=== PATIENT | female | born 1950 | race African-American/Black ===

== ENCOUNTER 2016-08-02 13:06 | Emergency (ER) | payer OTHER ==
[~2016-08-02] VITALS: Ht 157.5 cm; Wt 97.1 kg
[~2016-08-02 13:06] MED LIST: ACET325T9 PO; ASPI81TA50 PO; BACL10TA PO; CHLO1CAP PO; CRESTOR10 MG PO; CYCL10TA2 PO; DICY10CA3 PO; DIPH25CA58 PO; ESOM40CA PO; ESOM40SU PO; ESOM5SUS PO; GABA-586 PO; HYDR10TA2 PO; LIDO700A4 TP; MAGN400T3 PO; METH-38 PO; NAPR500T3 PO; NICO4GUM3 BC; NORT50CA PO; OLME20TA PO; ONDA4TAB7 PO; OXYC-323 PO; OXYC1TAB7 PO; PROC10TA57 PO; PROM25TA10 PO; SUMA50TA3 PO; TEMA15CA PO; TEMA7.5C2 PO; TOPI25TA32 PO; ZOLP10TA4 PO
--- NOTE | 2016-08-02 14:39 | PHYS DOC ---
Past Medical History Past Medical History: Arthritis, Diverticulitis, High Cholesterol, Hypertension , IBS, Other Additional Past Medical Histor: insomnia Past Surgical History: Appendectomy, Cholecystectomy, Hysterectomy, Tonsillectomy Additional Past Surgical Histo: bilat carpel tunnel, rt hip sg, rectal prolapse , hemroridectomy, back sg Alcohol Use: None Drug Use: None Adult General Chief Complaint Chief Complaint: GROIN PAIN HPI HPI Patient is a 66 year old female who presents with left groin pain for the past day and a half. Patient states on her way to [place] yesterday she developed left groin pain that is painful when she walks and has pain relief when she lays down. Patient denies any injury to the left groin. Patient denies any history of hernias. Patient denies any history or risk factors for DVT. Patient denies any dysuria or diarrhea constipation. Patient denies any chest pain or shortness of breath. Patient has no other symptoms. Pertinent exam findings: Positive tender to palpation left groin Abdomen soft nontender bowel sounds were normal 4 quadrants ED course: Patient was seen and evaluated CBC, CMP, lipase, UA, CT the abdomen and pelvis with contrast, ultrasound left lower extremity were ordered 1748: Patient is sitting up in bed or he cannot pop and states her pain has improved, discuss results with the patient and plan to discharge home with follow-up with her PCP and possible biopsy of a lymph node. Pertinent results: Ultrasound left lower extremity shows a lymph node in the left groin CT of abdomen and pelvis unremarkable MDM: After reviewing the chart, CC/HPI/PMH, physical exam, [lab results], [ radiological results], I do not believe the patient has entered abdominal emergency or an acute DVT left lower extremity wart and further workup and admission at this time. I believe the patient's left groin pain can be contributed to either her arthritis or the enlarged left lymph node in the groin area. I did explain to the patient that she needs a follow up with PCP and potentially have that biopsied. I discussed abnormal labs with the patient and recommended repeat lab work by her PCP. Patient is stable for discharge. Patient is comfortable being discharged home. Additional verbal discharge instructions were provided to the patient and that if symptoms get worse or any new symptoms arise that are worrisome to the patient she is to return to the emergency room immediately Review of Systems Review of Systems Constitutional: Denies fever or chills [] Eyes: Denies change in visual acuity, redness, or eye pain [] HENT: Denies nasal congestion or sore throat [] Respiratory: Denies cough or shortness of breath [] Cardiovascular: No additional information not addressed in HPI [] GI: Denies abdominal pain, nausea, vomiting, bloody stools or diarrhea [] : Denies dysuria or hematuria [] Musculoskeletal: Left groin pain Integument: Denies rash or skin lesions [] Current Medications Current Medications Current Medications Medications (Trade) Dose Ordered Sig/Lorraine Start Time Stop Time Status Last Admin Dose Admin Fentanyl Citrate (Fentanyl 2ml Vial) 50 mcg 1X ONCE 08/02/16 15:45 08/02/16 15:46 DC 08/02/16 15:52 50 MCG Info (Do NOT chart on this entry -- for MONITORING) 1 each PRN DAILY PRN 08/02/16 15:00 08/02/16 18:05 DC Iohexol (Omnipaque 300 Mg/ml) 75 ml 1X ONCE 08/02/16 15:00 08/02/16 15:01 DC 08/02/16 15:00 75 ML Allergies Allergies Allergies Coded Allergies Type Severity Reaction Last Updated Verified amoxicillin Allergy Intermediate Rash 01/21/15 Yes mirtazapine Allergy Intermediate WILD DREAMS 01/22/15 Yes trazodone Allergy Intermediate HEADACHE 01/22/15 Yes cefdinir Adverse Reaction Intermediate Nausea and Vomiting 01/22/15 Yes Physical Exam Physical Exam Constitutional: Well developed, well nourished, no acute distress, non-toxic appearance. [] HENT: Normocephalic, atraumatic, bilateral external ears normal, oropharynx moist, no oral exudates, nose normal. [] Eyes: PERRLA, EOMI, conjunctiva normal, no discharge. [] Neck: Normal range of motion, no tenderness, supple, no stridor. [] Cardiovascular:Heart rate regular rhythm, no murmur [] Lungs & Thorax: Bilateral breath sounds clear to auscultation [] Abdomen: Bowel sounds normal, soft, no tenderness, no masses, no pulsatile masses. [] Skin: Warm, dry, no erythema, no rash. [] Back: No tenderness, no CVA tenderness. [] Extremities: Left groin tenderness palpation with no palpable mass or hernia felt. Neurologic: Alert and oriented X 3, normal motor function, normal sensory function, no focal deficits noted. [] Psychologic: Affect normal, judgement normal, mood normal. [] Current Patient Data Vital Signs Vital Signs Date Time Temp Pulse Resp B/P (MAP) Pulse Ox O2 Delivery O2 Flow Rate FiO2 08/02/16 17:09 77 21 144/80 (101) 94 Room Air 08/02/16 14:03 98.8 98.8 Lab Values Laboratory Tests Test 08/02/16 15:15 White Blood Count 8.5 x10^3/uL (4.0-11.0) Red Blood Count 4.84 x10^6/uL (3.50-5.40) Hemoglobin 14.4 g/dL (12.0-15.5) Hematocrit 43.2 % (36.0-47.0) Mean Corpuscular Volume 89 fL (79-100) Mean Corpuscular Hemoglobin 30 pg (25-35) Mean Corpuscular Hemoglobin Concent 33 g/dL (31-37) Red Cell Distribution Width 16.1 % (11.5-14.5) H Platelet Count 221 x10^3/uL (140-400) Neutrophils (%) (Auto) 67 % (31-73) Lymphocytes (%) (Auto) 22 % (24-48) L Monocytes (%) (Auto) 9 % (0-9) Eosinophils (%) (Auto) 2 % (0-3) Basophils (%) (Auto) 1 % (0-3) Neutrophils # (Auto) 5.6 x10^3uL (1.8-7.7) Lymphocytes # (Auto) 1.8 x10^3/uL (1.0-4.8) Monocytes # (Auto) 0.8 x10^3/uL (0.0-1.1) Eosinophils # (Auto) 0.2 x10^3/uL (0.0-0.7) Basophils # (Auto) 0.1 x10^3/uL (0.0-0.2) Sodium Level 145 mmol/L (136-145) Potassium Level 3.9 mmol/L (3.5-5.1) Chloride Level 108 mmol/L (98-107) H Carbon Dioxide Level 30 mmol/L (21-32) Anion Gap 7 (6-14) Blood Urea Nitrogen 12 mg/dL (7-20) Creatinine 0.8 mg/dL (0.6-1.0) Estimated GFR (Cockcroft-Gault) 87.4 BUN/Creatinine Ratio 15 (6-20) Glucose Level 111 mg/dL (70-99) H Calcium Level 8.6 mg/dL (8.5-10.1) Total Bilirubin 1.5 mg/dL (0.2-1.0) H Aspartate Amino Transferase (AST) 39 U/L (15-37) H Alanine Aminotransferase (ALT) 39 U/L (14-59) Alkaline Phosphatase 133 U/L (46-116) H Total Protein 6.9 g/dL (6.4-8.2) Albumin 3.4 g/dL (3.4-5.0) Albumin/Globulin Ratio 1.0 (1.0-1.7) Lipase 124 U/L (73-393) Laboratory Tests 08/02/16 15:15 Laboratory Tests 08/02/16 15:15 EKG EKG [] Radiology/Procedures Radiology/Procedures Ultrasound left lower extremity : Impression: 1. There is no evidence of deep venous thrombosis from the left common femoral to popliteal veins. 2. There is nonspecific left groin lymph node.[] CT: Impression: 1. No convincing acute abnormality is identified. There is mild sigmoid diverticulosis without obvious evidence of diverticulitis. Course & Med Decision Making Course & Med Decision Making Pertinent Labs and Imaging studies reviewed. (See chart for details) [] Dragon Disclaimer Dragon Disclaimer This electronic medical record was generated, in whole or in part, using a voice recognition dictation system. Departure Departure Impression: Primary Impression: Lymphadenopathy Additional Impression: Groin pain Disposition: HOME, SELF-CARE Condition: IMPROVED Referrals: GREGORIA MCGRATH (PCP) Patient Instructions: Hip Pain Problem Qualifiers Additional Impression: Groin pain Laterality: left Qualified Codes: R10.32 - Left lower quadrant pain EKATERINA WELLINGTON DO August 02, 2016 14:39
[2016-08-02] MEDS ORDERED: IOHEXOL 300 MG/ML 75 ML VIAL IV ONE (15:00)
[2016-08-02] MEDS ORDERED: CONTRAST GIVEN MC PRN (15:00)
[2016-08-02 15:21] LABS: BASO # 0.1 x10^3/uL (0.0-0.2); BASO % 1 % (0-3); EOS % 2 % (0-3); HEMATOCRIT 43.2 % (36.0-47.0); HEMOGLOBIN 14.4 g/dL (12.0-15.5); LYMPH # 1.8 x10^3/uL (1.0-4.8); LYMPH % 22 % (24-48); MEAN CORPUSCULAR HEMOGLOBIN 30 pg (25-35); MEAN CORPUSCULAR HGB CONC 33 g/dL (31-37); MEAN CORPUSCULAR VOLUME 89 fL (79-100); MONO % 9 % (0-9); NEUT % 67 % (31-73); PLATELET COUNT 221 x10^3/uL (140-400); RED BLOOD COUNT 4.84 x10^6/uL (3.50-5.40); RED CELL DISTRIBUTION WIDTH 16.1 % (11.5-14.5); WHITE BLOOD COUNT 8.5 x10^3/uL (4.0-11.0)
[2016-08-02 15:32] LABS: CALCIUM 8.6 mg/dL (8.5-10.1); CREATININE 0.8 mg/dL (0.6-1.0); GFR 87.4; POTASSIUM 3.9 mmol/L (3.5-5.1)
[2016-08-02 15:38] LABS: ALBUMIN 3.4 g/dL (3.4-5.0); TOTAL BILIRUBIN 1.5 mg/dL (0.2-1.0); TOTAL PROTEIN 6.9 g/dL (6.4-8.2)
[2016-08-02] MEDS ORDERED: fentaNYL PF VIAL 100 MCG/2 ML VIAL IV ONE (15:45)
--- NOTE | 2016-08-02 16:15 | RAD ---
Left lower extremity venous doppler ultrasound History: Left groin pain Comparison: None Findings: Multiple grayscale, color, and duplex spectral analysis sonographic images were acquired of the left lower extremity veins to evaluate for the presence of DVT. There is normal phasicity. Normal compression, color-flow, and augmentation is demonstrated from the left common femoral to the popliteal veins. There is normal color flow of the proximal profunda femoris vein. There is normal color flow of segments of the calf veins. There is a node in the left groin region on the order of 3.1 x 0.5 x 2 cm. Impression: 1. There is no evidence of deep venous thrombosis from the left common femoral to popliteal veins. 2. There is nonspecific left groin lymph node. Electronically signed by: Andrei Rashid MD (08/02/2016 4:12 PM)
--- NOTE | 2016-08-02 16:47 | RAD ---
CT abdomen and pelvis with contrast History: Left groin pain for 2 days Contrast: 75 cc Omnipaque 300 Technique: After the administration of intravenous contrast, CT imaging was performed of the abdomen and pelvis. No oral contrast was given as per request. Multiplanar images are reviewed. Exposure: One or more of the following individualized dose reduction techniques were utilized for this examination: 1. Automated exposure control 2. Adjustment of the mA and/or kV according to patient size 3. Use of iterative reconstruction technique. Comparison: March 19, 2015 Findings: There is some motion degradation. There is mild atelectasis of the visualized lung bases. There is no significant abnormality of the liver, spleen, pancreas, adrenal glands. Both kidneys enhance without hydronephrosis. Tiny hypodense lesion of the superior right kidney is similar, otherwise too small to accurately characterize on the order of 0.3 cm.There again has been cholecystectomy. Accurate evaluation of bowel is limited without oral contrast. There is no significant inflammatory change adjacent to the bowel. There is no evidence of bowel obstruction, free fluid, or free air. Appendix is not clearly identified. There is mild sigmoid diverticulosis without obvious evidence of diverticulitis. The bladder has a normal configuration. There is no significant lymphadenopathy. There has been posterolateral fusion L4-S1, posterior decompression at these levels. Impression: 1. No convincing acute abnormality is identified. There is mild sigmoid diverticulosis without obvious evidence of diverticulitis. Electronically signed by: Andrei Rashid MD (08/02/2016 4:43 PM)
[2016-08-02 17:09] VITALS: BP 144/80
== END 2016-08-02 18:05 | disposition home or self-care (01) ==
LOC: ER 13:06
DX: R10.32 Left lower quadrant pain (principal); R59.1 Generalized enlarged lymph nodes; M19.90 Unspecified osteoarthritis, unspecified site; E78.00 Pure hypercholesterolemia, unspecified; I10 Essential (primary) hypertension; G47.00 Insomnia, unspecified; Z90.49 Acquired absence of other specified parts of digestive tract; Z90.710 Acquired absence of both cervix and uterus; Z88.0 Allergy status to penicillin; Z88.1 Allergy status to other antibiotic agents; Z88.8 Allergy status to other drugs, medicaments and biological substances
CPT/HCPCS: 36415; 74177; 80053; 83690; 85027; 93971; 96374; 99285; J3010; Q9967

== ENCOUNTER 2017-08-03 13:54 | Emergency (ER) | payer OTHER ==
[2017-08-03 14:22] LABS: POC GLUCOSE 83 mg/dL (70-99)
[2017-08-03 15:06] LABS: ADD MAN DIFF? NO
[2017-08-03 15:07] LABS: BASO # 0.1 x10^3/uL (0.0-0.2); BASO % 1 % (0-3); EOS % 0 % (0-3); HEMATOCRIT 42.8 % (36.0-47.0); HEMOGLOBIN 14.4 g/dL (12.0-15.5); LYMPH # 1.5 x10^3/uL (1.0-4.8); LYMPH % 23 % (24-48); MEAN CORPUSCULAR HEMOGLOBIN 31 pg (25-35); MEAN CORPUSCULAR HGB CONC 34 g/dL (31-37); MEAN CORPUSCULAR VOLUME 91 fL (79-100); MONO # 0.9 x10^3/uL (0.0-1.1); MONO % 15 % (0-9); NEUT # 3.9 x10^3uL (1.8-7.7); NEUT % 61 % (31-73); PLATELET COUNT 230 x10^3/uL (140-400); RED BLOOD COUNT 4.71 x10^6/uL (3.50-5.40); RED CELL DISTRIBUTION WIDTH 13.8 % (11.5-14.5); WHITE BLOOD COUNT 6.3 x10^3/uL (4.0-11.0)
[2017-08-03] MEDS: IV NORMAL SALINE 1000ML BAG 1,000 ML IV ×2 (15:09→16:34)
[2017-08-03] MEDS: diphenhydrAMINE 50 MG/ML VIAL IVP (15:11)
[2017-08-03] MEDS: PROCHLORPERAZINE 10 MG/2 ML VIAL. IV (15:11)
[2017-08-03 15:18] LABS: ANION GAP 3 (6-14); BLOOD UREA NITROGEN 11 mg/dL (7-20); BUN/CREATININE RATIO 10 (6-20); CALCIUM 8.9 mg/dL (8.5-10.1); CARBON DIOXIDE 31 mmol/L (21-32); CHLORIDE 105 mmol/L (98-107); CREATININE 1.1 mg/dL (0.6-1.0); GFR 60.3; GLUCOSE 112 mg/dL (70-99); POTASSIUM 4.2 mmol/L (3.5-5.1); SODIUM 139 mmol/L (136-145)
[2017-08-03 15:24] LABS: ALBUMIN 3.2 g/dL (3.4-5.0); ALBUMIN/GLOBULIN RATIO 0.7 (1.0-1.7); ALK PHOS 180 U/L (46-116); ALT (SGPT) 57 U/L (14-59); AST (SGOT) 65 U/L (15-37); LIPASE 243 U/L (73-393); MAGNESIUM 2.5 mg/dL (1.8-2.4); TOTAL BILIRUBIN 1.6 mg/dL (0.2-1.0); TOTAL PROTEIN 8.1 g/dL (6.4-8.2)
[2017-08-03 15:26] LABS: TROPONINI 0.045 ng/mL (0.000-0.055)
[2017-08-03] MEDS: KETOROLAC 30 MG/ML INJ. IV (16:48)
[2017-08-03 17:26] LABS: TROPONINI 0.043 ng/mL (0.000-0.055)
== END 2017-08-03 18:00 | disposition home or self-care (01) ==
LOC: ER 13:54
DX: R51 Headache (principal); I10 Essential (primary) hypertension; E78.00 Pure hypercholesterolemia, unspecified; K58.9 Irritable bowel syndrome, unspecified; G43.909 Migraine, unspecified, not intractable, without status migrainosus; Z88.1 Allergy status to other antibiotic agents; Z88.8 Allergy status to other drugs, medicaments and biological substances
CPT/HCPCS: 36415; 70450; 80053; 82962; 83690; 83735; 84484; 85025; 93005; 96374; 96375; 99285-25; J0780; J1200; J1885; J7030

== ENCOUNTER 2017-08-13 21:36 | Emergency (ER) | payer OTHER ==
[2017-08-13 23:18] LABS: ADD MAN DIFF? YES; BASO # 0.1 x10^3/uL (0.0-0.2); BASO % 1 % (0-3); EOS # 0.3 x10^3/uL (0.0-0.7); EOS % 3 % (0-3); HEMATOCRIT 34.3 % (36.0-47.0); HEMOGLOBIN 11.5 g/dL (12.0-15.5); LYMPH # 2.3 x10^3/uL (1.0-4.8); LYMPH % 21 % (24-48); MEAN CORPUSCULAR HEMOGLOBIN 31 pg (25-35); MEAN CORPUSCULAR HGB CONC 34 g/dL (31-37); MEAN CORPUSCULAR VOLUME 91 fL (79-100); MONO # 0.9 x10^3/uL (0.0-1.1); MONO % 9 % (0-9); NEUT % 66 % (31-73); PLATELET COUNT 442 x10^3/uL (140-400); RED BLOOD COUNT 3.77 x10^6/uL (3.50-5.40); RED CELL DISTRIBUTION WIDTH 14.8 % (11.5-14.5); WHITE BLOOD COUNT 10.6 x10^3/uL (4.0-11.0)
[2017-08-13 23:26] LABS: ANION GAP 9 (6-14); BLOOD UREA NITROGEN 14 mg/dL (7-20); CALCIUM 8.7 mg/dL (8.5-10.1); CARBON DIOXIDE 29 mmol/L (21-32); CHLORIDE 106 mmol/L (98-107); GFR 67.3; GLUCOSE 96 mg/dL (70-99); POTASSIUM 3.9 mmol/L (3.5-5.1); SODIUM 144 mmol/L (136-145)
[2017-08-14 00:47] LABS: % BANDS 2 % (0-9); % EOS 7 % (0-5); % LYMPHS 17 % (24-48); % MONOS 4 % (0-10); % MYELOS 2 % (0-0); % SEGS 68 % (35-66); NUCLEATED RBC 3; PLT ESTIMATE INCREASED (ADEQUATE)
[2017-08-14 00:48] LABS: ANISOCYTOSIS SLIGHT; POLYCHROMASIA SLIGHT
== END 2017-08-14 00:16 | disposition home or self-care (01) ==
LOC: ER 08-14 00:16
DX: J06.9 Acute upper respiratory infection, unspecified (principal); B34.9 Viral infection, unspecified; M19.90 Unspecified osteoarthritis, unspecified site; E78.00 Pure hypercholesterolemia, unspecified; I10 Essential (primary) hypertension; G43.909 Migraine, unspecified, not intractable, without status migrainosus; F17.210 Nicotine dependence, cigarettes, uncomplicated; K58.9 Irritable bowel syndrome, unspecified; Z88.1 Allergy status to other antibiotic agents; Z88.8 Allergy status to other drugs, medicaments and biological substances
CPT/HCPCS: 36415; 71046; 80048; 85007; 85025; 99285

== ENCOUNTER 2017-08-21 11:51 | Emergency (ER) | payer OTHER ==
[2017-08-21 12:18] LABS: BILIRUBIN,URINE SMALL (NEG); CLARITY,URINE TURBID; COLOR,URINE ORANGE; GLUCOSE,URINE NEGATIVE (NEG); NITRITE,URINE POSITIVE (NEG); PROTEIN,URINE 30 mg/dL (NEG-TRACE)
[2017-08-21 12:28] LABS: BACTERIA,URINE FEW /HPF (0-FEW); SQUAMOUS EPITHELIAL CELL,UR FEW /LPF; WBC,URINE >40 /HPF (0-4)
== END 2017-08-21 12:55 | disposition home or self-care (01) ==
LOC: ER 12:55
DX: N39.0 Urinary tract infection, site not specified (principal); E78.00 Pure hypercholesterolemia, unspecified; I10 Essential (primary) hypertension; G43.909 Migraine, unspecified, not intractable, without status migrainosus; K58.9 Irritable bowel syndrome, unspecified; Z90.49 Acquired absence of other specified parts of digestive tract; Z90.710 Acquired absence of both cervix and uterus; Z88.1 Allergy status to other antibiotic agents; Z88.8 Allergy status to other drugs, medicaments and biological substances
CPT/HCPCS: 81001; 99283

== ENCOUNTER 2017-11-04 06:41 | Inpatient (IN) | payer OTHER ==
[~2017-11-04] VITALS: Ht 157.5 cm; Wt 81.6 kg
[~2017-11-04 06:41] MED LIST changes: +AZIT1PAC9 PO; +NAPR-514 PO; -NAPR500T3 PO; -NICO4GUM3 BC; +NICO4GUM42 BC; +NITR100C62 PO; -OLME20TA PO; +OLME20TA17 PO; +PHEN-318 PO; -TOPI25TA32 PO; +TOPI25TA52 PO
--- NOTE | 2017-11-04 06:59 | PHYS DOC ---
Past Medical History Past Medical History: Arthritis, Diverticulitis, High Cholesterol, Hypertension , IBS, Migraines, Other Additional Past Medical Histor: insomnia Past Surgical History: Appendectomy, Cholecystectomy, Hysterectomy, Tonsillectomy Additional Past Surgical Histo: bilat carpel tunnel, rt hip sg, rectal prolapse , hemroridectomy, back sg Alcohol Use: None Drug Use: None Adult General Chief Complaint Chief Complaint: CHEST PAIN HPI HPI Patient is a 67 year old female was presenting to the emergency room with chest pain. Since Tuesday described as both dull and constant and also sharp. It is not really exertional she doesn't think. No fever no cough no abdominal pain no vomiting just this pain. She also complaining of a headache Review of Systems Review of Systems Constitutional: Denies fever or chills [] Eyes: Denies change in visual acuity, redness, or eye pain [] HENT: Denies nasal congestion or sore throat [] GI: Denies abdominal pain, nausea, vomiting, bloody stools or diarrhea [] : Denies dysuria or hematuria [] Musculoskeletal: Denies back pain or joint pain [] Integument: Denies rash or skin lesions [] Neurologic: Denies, focal weakness or sensory changes [] Endocrine: Denies polyuria or polydipsia [] All other systems were reviewed and found to be within normal limits, except as documented in this note. Current Medications Current Medications Current Medications Medications (Trade) Dose Ordered Sig/[facility] Start Time Stop Time Status Last Admin Dose Admin Acetaminophen (Tylenol) 1,000 mg 1X ONCE 11/04/17 08:00 11/04/17 08:01 DC 11/04/17 07:50 1,000 MG Aspirin (Children'S Aspirin) 324 mg 1X ONCE 11/04/17 08:00 11/04/17 08:01 DC 11/04/17 07:51 324 MG Allergies Allergies Allergies Coded Allergies Type Severity Reaction Last Updated Verified amoxicillin Allergy Intermediate Rash 01/21/15 Yes mirtazapine Allergy Intermediate WILD DREAMS 01/22/15 Yes trazodone Allergy Intermediate HEADACHE 01/22/15 Yes cefdinir Adverse Reaction Intermediate Nausea and Vomiting 01/22/15 Yes Physical Exam Physical Exam Constitutional: Well developed, well nourished, no acute distress, non-toxic appearance. [] HENT: Normocephalic, atraumatic, bilateral external ears normal, oropharynx moist, no oral exudates, nose normal. [] Eyes: PERRLA, EOMI, conjunctiva normal, no discharge. [] Neck: Normal range of motion, no tenderness, supple, no stridor. [] Cardiovascular:Heart rate regular rhythm, no murmur [] Lungs & Thorax: Bilateral breath sounds clear to auscultation []reproducible chest wall tenderness Abdomen: Bowel sounds normal, soft, no tenderness, no masses, no pulsatile masses. [] Skin: Warm, dry, no erythema, no rash. [] Back: No tenderness, no CVA tenderness. [] Extremities: No tenderness, no cyanosis, no clubbing, ROM intact, no edema. [] Neurologic: Alert and oriented X 3, normal motor function, normal sensory function, no focal deficits noted. [] Psychologic: Affect normal, judgement normal, mood normal. [] Current Patient Data Vital Signs Vital Signs Date Time Temp Pulse Resp B/P (MAP) Pulse Ox O2 Delivery O2 Flow Rate FiO2 11/04/17 08:23 64 16 142/80 (100) 95 Room Air 11/04/17 07:17 99.1 99.1 Lab Values Laboratory Tests Test 11/04/17 06:55 White Blood Count 8.2 x10^3/uL (4.0-11.0) Red Blood Count 4.99 x10^6/uL (3.50-5.40) Hemoglobin 14.7 g/dL (12.0-15.5) Hematocrit 43.8 % (36.0-47.0) Mean Corpuscular Volume 88 fL (79-100) Mean Corpuscular Hemoglobin 29 pg (25-35) Mean Corpuscular Hemoglobin Concent 34 g/dL (31-37) Red Cell Distribution Width 17.2 % (11.5-14.5) H Platelet Count 247 x10^3/uL (140-400) Neutrophils (%) (Auto) 58 % (31-73) Lymphocytes (%) (Auto) 32 % (24-48) Monocytes (%) (Auto) 7 % (0-9) Eosinophils (%) (Auto) 3 % (0-3) Basophils (%) (Auto) 1 % (0-3) Neutrophils # (Auto) 4.8 x10^3uL (1.8-7.7) Lymphocytes # (Auto) 2.6 x10^3/uL (1.0-4.8) Monocytes # (Auto) 0.6 x10^3/uL (0.0-1.1) Eosinophils # (Auto) 0.2 x10^3/uL (0.0-0.7) Basophils # (Auto) 0.1 x10^3/uL (0.0-0.2) Prothrombin Time 13.9 SEC (11.7-14.0) Prothrombin Time INR 1.1 (0.8-1.1) D-Dimer (Alisha) < 0.27 ug/mlFEU Sodium Level 144 mmol/L (136-145) Potassium Level 3.6 mmol/L (3.5-5.1) Chloride Level 106 mmol/L (98-107) Carbon Dioxide Level 28 mmol/L (21-32) Anion Gap 10 (6-14) Blood Urea Nitrogen 11 mg/dL (7-20) Creatinine 1.0 mg/dL (0.6-1.0) Estimated GFR (Cockcroft-Gault) 67.3 BUN/Creatinine Ratio 11 (6-20) Glucose Level 112 mg/dL (70-99) H Calcium Level 9.3 mg/dL (8.5-10.1) Total Bilirubin 1.1 mg/dL (0.2-1.0) H Aspartate Amino Transferase (AST) 22 U/L (15-37) Alanine Aminotransferase (ALT) 29 U/L (14-59) Alkaline Phosphatase 127 U/L (46-116) H Troponin I Quantitative 0.055 ng/mL (0.000-0.055) Total Protein 7.3 g/dL (6.4-8.2) Albumin 3.6 g/dL (3.4-5.0) Albumin/Globulin Ratio 1.0 (1.0-1.7) Laboratory Tests 11/04/17 06:55 Laboratory Tests 11/04/17 06:55 EKG EKG Normal sinus rhythm rate of 59 no obvious acute ischemic changes noted interpreted by me the timing encounter. There were some nonspecific changes inferiorly and lateral as well as anterior some flattening Radiology/Procedures Radiology/Procedures [] Impressions: Comparison is made to a study from 08/13/2017. The heart is at the upper limits of normal in size. There is calcific plaquing of the thoracic aorta. The pulmonary vascularity is normal. No pulmonary infiltrate is seen. There is no evidence of pleural fluid. IMPRESSION: No acute cardiopulmonary abnormality is detected. Electronically signed by: Edu Rabago MD (11/04/2017 7:50 AM) [facility] Course & Med Decision Making Course & Med Decision Making Pertinent Labs and Imaging studies reviewed. (See chart for details) []67-year-old female multiple risk factors for coronary artery disease presenting with atypical chest pain and has been fairly constant however the troponin is just barely within the normal range 0.055. EKG showed some nonspecific changes. Patient is overall well-appearing however the heart score is a 4 for age and risk factors patient will be admitted to the hospitalist service for stratification and a formal rule out. I don't think this is a dissection or PE the d-dimer was negative I does not sound like either Dragon Disclaimer Dragon Disclaimer This electronic medical record was generated, in whole or in part, using a voice recognition dictation system. Departure Departure Impression: Primary Impression: Chest pain Disposition: ADMITTED INPATIENT Admitting Physician: Sherita Holley Condition: STABLE Referrals: GREGORIA MCGRATH (PCP) ROBERT HARPER MD Nov 04, 2017 06:59
[2017-11-04 07:41] LABS: BASO # 0.1 x10^3/uL (0.0-0.2); BASO % 1 % (0-3); EOS # 0.2 x10^3/uL (0.0-0.7); EOS % 3 % (0-3); HEMATOCRIT 43.8 % (36.0-47.0); HEMOGLOBIN 14.7 g/dL (12.0-15.5); LYMPH # 2.6 x10^3/uL (1.0-4.8); LYMPH % 32 % (24-48); MEAN CORPUSCULAR HEMOGLOBIN 29 pg (25-35); MEAN CORPUSCULAR HGB CONC 34 g/dL (31-37); MEAN CORPUSCULAR VOLUME 88 fL (79-100); MONO # 0.6 x10^3/uL (0.0-1.1); MONO % 7 % (0-9); NEUT # 4.8 x10^3uL (1.8-7.7); NEUT % 58 % (31-73); PLATELET COUNT 247 x10^3/uL (140-400); RED BLOOD COUNT 4.99 x10^6/uL (3.50-5.40); RED CELL DISTRIBUTION WIDTH 17.2 % (11.5-14.5); WHITE BLOOD COUNT 8.2 x10^3/uL (4.0-11.0)
--- NOTE | 2017-11-04 07:53 | RAD ---
Portable chest, 11/04/2017: HISTORY: Chest pain Comparison is made to a study from 08/13/2017. The heart is at the upper limits of normal in size. There is calcific plaquing of the thoracic aorta. The pulmonary vascularity is normal. No pulmonary infiltrate is seen. There is no evidence of pleural fluid. IMPRESSION: No acute cardiopulmonary abnormality is detected. Electronically signed by: Edu Rabago MD (11/04/2017 7:50 AM) [facility]
[2017-11-04 07:56] LABS: PROTHROMBIN TIME PATIENT 13.9 SEC (11.7-14.0)
[2017-11-04 07:59] LABS: CALCIUM 9.3 mg/dL (8.5-10.1); GFR 67.3; POTASSIUM 3.6 mmol/L (3.5-5.1)
[2017-11-04 08:00] LABS: D-DIMER < 0.27 ug/mlFEU (0.00-0.50)
[2017-11-04] MEDS ORDERED: ASPIRIN CHEWABLE 81 MG TABLET. PO ONE (08:00)
[2017-11-04] MEDS ORDERED: ACETAMINOPHEN 500 MG TABLET PO ONE (08:00)
[2017-11-04 08:05] LABS: ALBUMIN 3.6 g/dL (3.4-5.0); TOTAL BILIRUBIN 1.1 mg/dL (0.2-1.0); TOTAL PROTEIN 7.3 g/dL (6.4-8.2)
--- NOTE | 2017-11-04 08:12 | EKG ---
[facility] [address] [place] [address] Test Date: 2017-11-04 Test Time: 06:49:11 Pat Name: KRISTINA BAZZI Department: Room: Gender: F [employer]: : 1950 Requested By: ROBERT HARPER Order Number: [id number] Reading MD: Odilon Flores MD Measurements Intervals [place] Rate: 59 P: 48 MN: 222 QRS: -20 QRSD: 78 T: 27 QT: 364 QTc: 360 Interpretive Statements SINUS RHYTHM PROLONGED MN INTERVAL NON-SPECIFIC ST/T CHANGES Electronically Signed On 11-08-2017 11:52:31 CDT by Odilon Flores MD
[2017-11-04] MEDS ORDERED: VENL37.5 PO (10:59)
[2017-11-04] MEDS ORDERED: SUVO20TA PO (10:59)
[2017-11-04 11:00] VITALS: BP 132/79
--- NOTE | 2017-11-04 11:27 | PDOC2 ---
CARDIAC CONSULT DATE OF CONSULT Date of Consult DATE: 11/04/17 TIME: 11:05 REASON FOR CONSULT Reason for Consult: Chest pain REFERRING PHYSICIAN Referring Physician: Kishan SOURCE Source: Chart review, Patient HISTORY OF PRESENT ILLNESS HISTORY OF PRESENT ILLNESS This is a pleasant 67 yo female admitted for complains of chest pain. Reports that she started having dull achy left chest pain Wed during the day. This continued on intermittently and today she wok up and was having nonradiating sharp left chest pain and unrelieved by aleve and heating pad. There was no associated CLAROS, exertional CP, nausea, vomiting, palpitations, frequent dizziness or diaphoresis or resting SOA. Reports that she has been stressed out lately given that her son just moved in and also presently taking care of a baby as well from her nephew. She has been busy taking care of others and this is stressing her out and forced to take care of the baby as she does not want this baby to end up to strangers. she has intermittent HAs, insomnia, anxiety with noted use of effexor and belsomra. Denies any CAD, recent falls, injury, VTE, arrhythmias, recent MVA, heavy lifting. To add she has been having chronic diarrhea , described as wet to loose for several months typically triggered with meals prompting self discontinuation of benicar and crestor 3 months ago. Denies any heartburn and has not taken any PPIs. Continues to use tobacco with occasional ETOH otherwise no recreational drug use. PAST MEDICAL HISTORY Cardiovascular: HTN, Hyperlipidemia Pulmonary: No pertinent hx CENTRAL NERVOUS SYSTEM: Migraine, Other (GRANDE) GI: Constipation, Diverticulosis, GERD, Other (diarrhea) Heme/Onc: No pertinent hx Hepatobiliary: No pertinent hx Psych: Anxiety Musculoskeletal: Osteoarthritis Rheumatologic: No pertinent hx Infectious disease: No pertinent hx ENT: No pertinent hx Renal/: UTI (trested with antibiotics 2 months ago) Endocrine: No pertinent hx Dermatology: Other (right lipoma) PAST SURGICAL HISTORY Past Surgical History: Appendectomy, Cholecystectomy, Tonsillectomy, Hysterectomy, Other (lumbar fusion, right hip lipoma removal; hemorroidectomy; carpal tunnel syndrome) FAMILY HISTORY Family History: Coronary Artery Disease (father) SOCIAL HISTORY Smoke: 1 pack per day ALCOHOL: occassional Drugs: None Lives: with Family CURRENT MEDICATIONS CURRENT MEDICATIONS Current Medications Medications (Trade) Dose Ordered Sig/Lorraine Route PRN Reason Start Time Stop Time Status Last Admin Dose Admin Aspirin (Children'S Aspirin) 324 mg 1X ONCE PO 11/04/17 08:00 11/04/17 08:01 DC 11/04/17 07:51 Acetaminophen (Tylenol) 1,000 mg 1X ONCE PO 11/04/17 08:00 11/04/17 08:01 DC 11/04/17 07:50 ALLERGIES ALLERGIES: Coded Allergies: amoxicillin (Verified Allergy, Intermediate, Rash, 01/21/15) mirtazapine (Verified Allergy, Intermediate, WILD DREAMS, 01/22/15) "WILD DREAMS" trazodone (Verified Allergy, Intermediate, HEADACHE, 01/22/15) HEADACHE cefdinir (Verified Adverse Reaction, Intermediate, Nausea and Vomiting, ) ROS Review of System 14 point ROS evaluated with pertinent positives noted per HPI PHYSICAL EXAM General: Alert, Oriented X3, Cooperative, No acute distress HEENT: Atraumatic, Mucous membr. moist/pink Lungs: Clear to auscultation, Normal air movement Heart: Regular rate (SR), Normal S1, Normal S2, No murmurs Abdomen: Soft, No tenderness Extremities: No cyanosis, No edema Skin: No breakdown, No significant lesion Neuro: Normal speech, Sensation intact Psych/Mental Status: Mental status NL, Mood NL MUSCULOSKELETAL: Osteoarthritic changes both hands VITALS VITALS Vital Signs Date Time Temp Pulse Resp B/P (MAP) Pulse Ox O2 Delivery O2 Flow Rate FiO2 11/04/17 08:23 64 16 142/80 (100) 95 Room Air 11/04/17 07:17 99.1 99.1 LABS Lab: Laboratory Tests Test 11/04/17 06:55 White Blood Count 8.2 x10^3/uL (4.0-11.0) Red Blood Count 4.99 x10^6/uL (3.50-5.40) Hemoglobin 14.7 g/dL (12.0-15.5) Hematocrit 43.8 % (36.0-47.0) Mean Corpuscular Volume 88 fL (79-100) Mean Corpuscular Hemoglobin 29 pg (25-35) Mean Corpuscular Hemoglobin Concent 34 g/dL (31-37) Red Cell Distribution Width 17.2 % (11.5-14.5) Platelet Count 247 x10^3/uL (140-400) Neutrophils (%) (Auto) 58 % (31-73) Lymphocytes (%) (Auto) 32 % (24-48) Monocytes (%) (Auto) 7 % (0-9) Eosinophils (%) (Auto) 3 % (0-3) Basophils (%) (Auto) 1 % (0-3) Neutrophils # (Auto) 4.8 x10^3uL (1.8-7.7) Lymphocytes # (Auto) 2.6 x10^3/uL (1.0-4.8) Monocytes # (Auto) 0.6 x10^3/uL (0.0-1.1) Eosinophils # (Auto) 0.2 x10^3/uL (0.0-0.7) Basophils # (Auto) 0.1 x10^3/uL (0.0-0.2) Prothrombin Time 13.9 SEC (11.7-14.0) Prothromb Time International Ratio 1.1 (0.8-1.1) D-Dimer (Alisha) < 0.27 ug/mlFEU Sodium Level 144 mmol/L (136-145) Potassium Level 3.6 mmol/L (3.5-5.1) Chloride Level 106 mmol/L (98-107) Carbon Dioxide Level 28 mmol/L (21-32) Anion Gap 10 (6-14) Blood Urea Nitrogen 11 mg/dL (7-20) Creatinine 1.0 mg/dL (0.6-1.0) Estimated GFR (Cockcroft-Gault) 67.3 BUN/Creatinine Ratio 11 (6-20) Glucose Level 112 mg/dL (70-99) Calcium Level 9.3 mg/dL (8.5-10.1) Total Bilirubin 1.1 mg/dL (0.2-1.0) Aspartate Amino Transf (AST/SGOT) 22 U/L (15-37) Alanine Aminotransferase (ALT/SGPT) 29 U/L (14-59) Alkaline Phosphatase 127 U/L (46-116) Troponin I Quantitative 0.055 ng/mL (0.000-0.055) Total Protein 7.3 g/dL (6.4-8.2) Albumin 3.6 g/dL (3.4-5.0) Albumin/Globulin Ratio 1.0 (1.0-1.7) ASSESSMENT/PLAN ASSESSMENT/PLAN 1. Atypical CP; unrelieved by aleve and heating pad. Possibly MSK. EKG SR with first degree AV block. 2. HTN 3. HLP 4. Anxiety/stress/GRANDE; dealing with family dynamics. Per PCP 5. Chronic diarrhea: prompting self stoppage of home benicar and crestor with last doses 3 months ago. 6. Tobaccoism: >30 pk yr 7. Family hx of CAD; SCD father in his 50s Recommendations 1. Significant cardiac risk factors. Will proceed with MPI today. 2. Monitor BP trend and note lipid panel and will restart prior home meds per trend 3. Smoking cessation 4. Takes effexor and belsomra, defer to PCP 5. TSH, lipids. GREGORIO LANCASTER [employer] Nov 04, 2017 11:27
[2017-11-04 11:29] LABS: CHOLESTEROL/HDL RATIO 4.8
[2017-11-04 12:38] LABS: FREE T4 0.87 ng/dL (0.76-1.46)
[2017-11-04] MEDS ORDERED: REGADENOSON 0.4 MG/5 ML DISP.SYRIN. IV ONE ×2 (12:45→14:00)
--- NOTE | 2017-11-04 14:01 | PDOC1 ---
History and Physical Date of Admission Date of Admission DATE: 11/04/17 TIME: 13:59 History of Present Illness History of Present Illness Ms. Lew is a 67 year old female admit with chest pain, 2 days of dull ache left upper chest pain, acutely worse today, with pressure and pain to left chest. Pain is reproducible, also pain is described as both dull and constant and also sharp. she does not correlate meals, or position or exertion Past Medical History Cardiovascular: HTN, Hyperlipidemia Pulmonary: No pertinent hx CENTRAL NERVOUS SYSTEM: Migraine, Other (GRANDE) GI: Constipation, Diverticulosis, GERD, Other (diarrhea) Heme/Onc: No pertinent hx Hepatobiliary: No pertinent hx Psych: Anxiety Musculoskeletal: Osteoarthritis Rheumatologic: No pertinent hx Infectious disease: No pertinent hx ENT: No pertinent hx Renal/: UTI (trested with antibiotics 2 months ago) Endocrine: No pertinent hx Dermatology: Other (right lipoma) Past Surgical History Past Surgical History: Appendectomy, Cholecystectomy, Tonsillectomy, Hysterectomy, Other (lumbar fusion, right hip lipoma removal; hemorroidectomy; carpal tunnel syndrome) Family History Family History: Coronary Artery Disease (father) Social History Smoke: 1 pack per day ALCOHOL: occassional Drugs: None Current Medications Current Medications Current Medications Aspirin (Children'S Aspirin) 324 mg 1X ONCE PO Last administered on 11/04/17at 07:51; Start 11/04/17 at 08:00; Stop 11/04/17 at 08:01; Status DC Acetaminophen (Tylenol) 1,000 mg 1X ONCE PO Last administered on 11/04/17at 07: 50; Start 11/04/17 at 08:00; Stop 11/04/17 at 08:01; Status DC Atorvastatin Calcium (Lipitor) 20 mg QHS PO ; Start 11/04/17 at 21:00 Regadenoson (Lexiscan) 0.4 mg 1X ONCE IV ; Start 11/04/17 at 12:45; Stop at 12:46; Status DC Active Scripts Active Reported Belsomra (Suvorexant) 20 Mg Tablet 20 Mg PO HS Effexor Xr (Venlafaxine Hcl) 37.5 Mg Cap.er.24h 37.5 Mg PO BID Nortriptyline Hcl 50 Mg Capsule 50 Mg PO HS PRN Not taken while in hosp. may resume at home as directed as needed. Benicar (Olmesartan Medoxomil) 20 Mg Tablet 20 Mg PO DAILY Not taken while in hosp. May resume at home as directed Nexium Capsule (Esomeprazole Magnesium) 40 Mg Capsule.dr 40 Mg PO DAILYAC LAST DOSE GIVEN: DATE:01-22-15 TIME:8:30 a.m. NEXT DOSE DUE: DATE:01-23-15 TIME:8:30 a.m. Crestor (Rosuvastatin Calcium) 10 Mg Tablet 20 Mg PO DAILY LAST DOSE GIVEN: DATE:01-21-15 TIME:9:00 p.m. NEXT DOSE DUE: DATE:01-22-15 TIME:9:00 p.m. Allergies Allergies: Coded Allergies: amoxicillin (Verified Allergy, Intermediate, Rash, 01/21/15) mirtazapine (Verified Allergy, Intermediate, WILD DREAMS, 01/22/15) "WILD DREAMS" trazodone (Verified Allergy, Intermediate, HEADACHE, 01/22/15) HEADACHE cefdinir (Verified Adverse Reaction, Intermediate, Nausea and Vomiting, ) ROS General: No: Chills, Night Sweats, Fatigue, Malaise, Appetite, Other PSYCHOLOGICAL ROS: No: Anxiety, Behavioral Disorder, Concentration difficultie , Decreased libido, Depression, Disorientation, Hallucinations, Hostility, Irritablity, Memory difficulties, Mood Swings, Obsessive thoughts, Physical abuse, Sexual abuse, Sleep disturbances, Suicidal ideation, Other Eyes: No Blurry vision, No Decreased vision, No Double vision, No Dry eyes, No Excessive tearing, No Eye Pain, No Itchy Eyes, No Loss of vision, No Photophobia , No Scotomata, No Uses contacts, No Uses glasses, No Other HEENT: No: Heacaches, Visual Changes, Hearing change, Nasal congestion, Nasal discharge, Oral lesions, Sinus pain, Sore Throat, Epistaxis, Sneezing, Snoring, Tinnitus, Vertigo, Vocal changes, Other Respiratory: YES: Cough, Pleuritic Pain Cardiovascular: yes Chest Pain Gastrointestinal: Yes Abdominal Pain, Yes Diarrhea; No Nausea, No Vomiting, No Constipation, No Melena, No Hematochezia, No Other Genitourinary: No Dysuria, No Frequency, No Incontinence, No Hematuria, No Retention, No Discharge, No Urgency, No Pain, No Flank Pain, No Other, No , No , No , No , No , No , No Musculoskeletal: Yes Joint Pain, Yes Joint Stiffness Neurological: No Behavorial Changes, No Bowel/Bladder ControlChng, No Confusion , No Dizziness, No Gait Disturbance, No Headaches, No Impaired Coord/balance, No Memory Loss, No Numbness/Tingling, No Seizures, No Speech Problems, No Tremors, No Visual Changes, No Weakness, No Other Skin: No Dry Skin, No Eczema, No Hair Changes, No Lumps, No Mole Changes, No Mottling, No Nail Changes, No Pruritus, No Rash, No Skin Lesion Changes, No Other, No Acne Physical Exam General: Alert, Oriented X3, Cooperative, No acute distress HEENT: Atraumatic, PERRLA, EOMI Lungs: Normal air movement Heart: S1S2, RRR, no murmurs Extremities: No cyanosis, Other Skin: No breakdown, Other Neuro: Normal speech, Normal tone Psych/Mental Status: Mental status NL, Mood NL Vitals Vitals Vital Signs Date Time Temp Pulse Resp B/P (MAP) Pulse Ox O2 Delivery O2 Flow Rate FiO2 11/04/17 08:23 64 16 142/80 (100) 95 Room Air 11/04/17 07:17 99.1 99.1 Labs Labs Laboratory Tests Test 11/04/17 06:55 11/04/17 12:11 White Blood Count 8.2 x10^3/uL (4.0-11.0) Red Blood Count 4.99 x10^6/uL (3.50-5.40) Hemoglobin 14.7 g/dL (12.0-15.5) Hematocrit 43.8 % (36.0-47.0) Mean Corpuscular Volume 88 fL (79-100) Mean Corpuscular Hemoglobin 29 pg (25-35) Mean Corpuscular Hemoglobin Concent 34 g/dL (31-37) Red Cell Distribution Width 17.2 % (11.5-14.5) Platelet Count 247 x10^3/uL (140-400) Neutrophils (%) (Auto) 58 % (31-73) Lymphocytes (%) (Auto) 32 % (24-48) Monocytes (%) (Auto) 7 % (0-9) Eosinophils (%) (Auto) 3 % (0-3) Basophils (%) (Auto) 1 % (0-3) Neutrophils # (Auto) 4.8 x10^3uL (1.8-7.7) Lymphocytes # (Auto) 2.6 x10^3/uL (1.0-4.8) Monocytes # (Auto) 0.6 x10^3/uL (0.0-1.1) Eosinophils # (Auto) 0.2 x10^3/uL (0.0-0.7) Basophils # (Auto) 0.1 x10^3/uL (0.0-0.2) Prothrombin Time 13.9 SEC (11.7-14.0) Prothromb Time International Ratio 1.1 (0.8-1.1) D-Dimer (Alisha) < 0.27 ug/mlFEU Sodium Level 144 mmol/L (136-145) Potassium Level 3.6 mmol/L (3.5-5.1) Chloride Level 106 mmol/L (98-107) Carbon Dioxide Level 28 mmol/L (21-32) Anion Gap 10 (6-14) Blood Urea Nitrogen 11 mg/dL (7-20) Creatinine 1.0 mg/dL (0.6-1.0) Estimated GFR (Cockcroft-Gault) 67.3 BUN/Creatinine Ratio 11 (6-20) Glucose Level 112 mg/dL (70-99) Calcium Level 9.3 mg/dL (8.5-10.1) Total Bilirubin 1.1 mg/dL (0.2-1.0) Aspartate Amino Transf (AST/SGOT) 22 U/L (15-37) Alanine Aminotransferase (ALT/SGPT) 29 U/L (14-59) Alkaline Phosphatase 127 U/L (46-116) Troponin I Quantitative 0.055 ng/mL (0.000-0.055) 0.054 ng/mL (0.000-0.055) Total Protein 7.3 g/dL (6.4-8.2) Albumin 3.6 g/dL (3.4-5.0) Albumin/Globulin Ratio 1.0 (1.0-1.7) Triglycerides Level 171 mg/dL (0-150) Cholesterol Level 214 mg/dL (0-200) LDL Cholesterol, Calculated 135 mg/dL (0-100) VLDL Cholesterol, Calculated 34 mg/dL (0-40) Non-HDL Cholesterol Calculated 169 mg/dL (0-129) HDL Cholesterol 45 mg/dL (40-60) Cholesterol/HDL Ratio 4.8 Thyroid Stimulating Hormone (TSH) 7.836 uIU/mL (0.358-3.74) Free Thyroxine 0.87 ng/dL (0.76-1.46) Free Triiodothyronine (T3) pg/mL 2.27 pg/mL (2.18-3.98) Laboratory Tests Test 11/04/17 06:55 11/04/17 12:11 White Blood Count 8.2 x10^3/uL (4.0-11.0) Red Blood Count 4.99 x10^6/uL (3.50-5.40) Hemoglobin 14.7 g/dL (12.0-15.5) Hematocrit 43.8 % (36.0-47.0) Mean Corpuscular Volume 88 fL (79-100) Mean Corpuscular Hemoglobin 29 pg (25-35) Mean Corpuscular Hemoglobin Concent 34 g/dL (31-37) Red Cell Distribution Width 17.2 % (11.5-14.5) Platelet Count 247 x10^3/uL (140-400) Neutrophils (%) (Auto) 58 % (31-73) Lymphocytes (%) (Auto) 32 % (24-48) Monocytes (%) (Auto) 7 % (0-9) Eosinophils (%) (Auto) 3 % (0-3) Basophils (%) (Auto) 1 % (0-3) Neutrophils # (Auto) 4.8 x10^3uL (1.8-7.7) Lymphocytes # (Auto) 2.6 x10^3/uL (1.0-4.8) Monocytes # (Auto) 0.6 x10^3/uL (0.0-1.1) Eosinophils # (Auto) 0.2 x10^3/uL (0.0-0.7) Basophils # (Auto) 0.1 x10^3/uL (0.0-0.2) Prothrombin Time 13.9 SEC (11.7-14.0) Prothromb Time International Ratio 1.1 (0.8-1.1) D-Dimer (Alisha) < 0.27 ug/mlFEU Sodium Level 144 mmol/L (136-145) Potassium Level 3.6 mmol/L (3.5-5.1) Chloride Level 106 mmol/L (98-107) Carbon Dioxide Level 28 mmol/L (21-32) Anion Gap 10 (6-14) Blood Urea Nitrogen 11 mg/dL (7-20) Creatinine 1.0 mg/dL (0.6-1.0) Estimated GFR (Cockcroft-Gault) 67.3 BUN/Creatinine Ratio 11 (6-20) Glucose Level 112 mg/dL (70-99) Calcium Level 9.3 mg/dL (8.5-10.1) Total Bilirubin 1.1 mg/dL (0.2-1.0) Aspartate Amino Transf (AST/SGOT) 22 U/L (15-37) Alanine Aminotransferase (ALT/SGPT) 29 U/L (14-59) Alkaline Phosphatase 127 U/L (46-116) Troponin I Quantitative 0.055 ng/mL (0.000-0.055) 0.054 ng/mL (0.000-0.055) Total Protein 7.3 g/dL (6.4-8.2) Albumin 3.6 g/dL (3.4-5.0) Albumin/Globulin Ratio 1.0 (1.0-1.7) Triglycerides Level 171 mg/dL (0-150) Cholesterol Level 214 mg/dL (0-200) LDL Cholesterol, Calculated 135 mg/dL (0-100) VLDL Cholesterol, Calculated 34 mg/dL (0-40) Non-HDL Cholesterol Calculated 169 mg/dL (0-129) HDL Cholesterol 45 mg/dL (40-60) Cholesterol/HDL Ratio 4.8 Thyroid Stimulating Hormone (TSH) 7.836 uIU/mL (0.358-3.74) Free Thyroxine 0.87 ng/dL (0.76-1.46) Free Triiodothyronine (T3) pg/mL 2.27 pg/mL (2.18-3.98) VTE Prophylaxis Ordered VTE Prophylaxis Devices: No VTE Pharmacological Prophylaxi: No Assessment/Plan Assessment/Plan chest pain, costochondritis, atypical chest pain with cardiac risk,. MPI today diarrhea, acute on chronic, consult GI, may f/u outpatient obesity, BMI 33 depression, or anxiety with insomnia, on 3 meds, possible complicated, f/u [facility] DRE Choe IRA W MD Nov 04, 2017 14:00
[2017-11-04] MEDS ORDERED: LIDO700A39 TD (14:38)
--- NOTE | 2017-11-04 14:41 | PDOC2 ---
GI CONSULT Reason For Consult: Diarrhea HPI: HPI: 67 y/o female w/ atypical chest pain, cardiac workup in process w/ possible discharge later today. Left upper chest pain began Tuesday without precipitating events. Was initially dull, then progressively became sharper. [place] in a [place] around breast - "underneath everything." GI-vega, has a few issues. H/o GERD - intermittent heartburn, takes esomeprazole PRN (about once weekly). No dysphagia, n/v, or abd pain. Thinks had an EGD w/ Dr. Vásquez @ [facility] last year, was told to come back in 1 year. Recalls no ulcers but thinks Bautista's esophagus sounds familiar. Long h/o IBS - initially had diarrhea, then constipation. Had a lot of straining and bleeding, actually had a hemorrhoidectomy and took Linzess for awhile. Then a couple months ago, switched back to having diarrhea. Stools occur mostly after eating but can also occur randomly during the day and during the night, sometimes w/ soiling. No melena or hematochezia. Denies precipitating events though did take an antibiotic for a UTI. At one point had vomiting associated w / diarrhea - says called the office and received an order for stool studies but "couldn't figure out how to do it." (Vomiting resolved since.) Has probably lost about 10 pounds. Takes dicyclomine PRN, doesn't think it helps. Also took Librax in the past. Had colonoscopy w/ EGD, thinks was told about "diverticulitis" (?diverticulosis - seen in sigmoid on CT in 2017). For arthritis-type pain and migraines, takes Naproxen and Excedrin PRN. S/p cholecystectomy (not sure if had stones). Saw Dr. Sarah Smith in the past, some question of previous pancreatitis or Crohn's disease (but was never treated). PMH: PMH: HTN, HLD, migraines, diverticulosis, anxiety, OA, UTI, RFAA, nephrolithiasis, appendectomy, cholecystectomy, tonsillectomy, hysterectomy, bilateral salpingo- oophorectomy, lumbar fusion, removal of lipoma (right hip), hemorrhoidectomy, rectal prolapse repair, bilateral CTR FH: Family History: CAD, Other (mother and sisters have diverticulosis and " stomach problems" ) Social History: Smoke: 1 pack per day ALCOHOL: rare Drugs: None ROS: GEN: Denies fevers, chills, sweats HEENT: Denies blurred vision, sore throat CV: +chest pain RESP: Denies shortness of air, cough GI: Per HPI : Denies hematuria, dysuria ENDO: Denies weight changes NEURO: Denies confusion, dizziness MSK: Denies weakness, joint pain/swelling SKIN: Denies jaundice, pruritus Vitals: Vitals: Vital Signs Date Time Temp Pulse Resp B/P (MAP) Pulse Ox O2 Delivery O2 Flow Rate FiO2 11/04/17 11:00 97.5 53 20 132/79 (96) 95 Room Air 97.5 Labs: Labs: Laboratory Tests Test 11/04/17 06:55 11/04/17 12:11 White Blood Count 8.2 x10^3/uL (4.0-11.0) Red Blood Count 4.99 x10^6/uL (3.50-5.40) Hemoglobin 14.7 g/dL (12.0-15.5) Hematocrit 43.8 % (36.0-47.0) Mean Corpuscular Volume 88 fL (79-100) Mean Corpuscular Hemoglobin 29 pg (25-35) Mean Corpuscular Hemoglobin Concent 34 g/dL (31-37) Red Cell Distribution Width 17.2 % (11.5-14.5) Platelet Count 247 x10^3/uL (140-400) Neutrophils (%) (Auto) 58 % (31-73) Lymphocytes (%) (Auto) 32 % (24-48) Monocytes (%) (Auto) 7 % (0-9) Eosinophils (%) (Auto) 3 % (0-3) Basophils (%) (Auto) 1 % (0-3) Neutrophils # (Auto) 4.8 x10^3uL (1.8-7.7) Lymphocytes # (Auto) 2.6 x10^3/uL (1.0-4.8) Monocytes # (Auto) 0.6 x10^3/uL (0.0-1.1) Eosinophils # (Auto) 0.2 x10^3/uL (0.0-0.7) Basophils # (Auto) 0.1 x10^3/uL (0.0-0.2) Prothrombin Time 13.9 SEC (11.7-14.0) Prothromb Time International Ratio 1.1 (0.8-1.1) D-Dimer (Alisha) < 0.27 ug/mlFEU Sodium Level 144 mmol/L (136-145) Potassium Level 3.6 mmol/L (3.5-5.1) Chloride Level 106 mmol/L (98-107) Carbon Dioxide Level 28 mmol/L (21-32) Anion Gap 10 (6-14) Blood Urea Nitrogen 11 mg/dL (7-20) Creatinine 1.0 mg/dL (0.6-1.0) Estimated GFR (Cockcroft-Gault) 67.3 BUN/Creatinine Ratio 11 (6-20) Glucose Level 112 mg/dL (70-99) Calcium Level 9.3 mg/dL (8.5-10.1) Total Bilirubin 1.1 mg/dL (0.2-1.0) Aspartate Amino Transf (AST/SGOT) 22 U/L (15-37) Alanine Aminotransferase (ALT/SGPT) 29 U/L (14-59) Alkaline Phosphatase 127 U/L (46-116) Troponin I Quantitative 0.055 ng/mL (0.000-0.055) 0.054 ng/mL (0.000-0.055) Total Protein 7.3 g/dL (6.4-8.2) Albumin 3.6 g/dL (3.4-5.0) Albumin/Globulin Ratio 1.0 (1.0-1.7) Triglycerides Level 171 mg/dL (0-150) Cholesterol Level 214 mg/dL (0-200) LDL Cholesterol, Calculated 135 mg/dL (0-100) VLDL Cholesterol, Calculated 34 mg/dL (0-40) Non-HDL Cholesterol Calculated 169 mg/dL (0-129) HDL Cholesterol 45 mg/dL (40-60) Cholesterol/HDL Ratio 4.8 Thyroid Stimulating Hormone (TSH) 7.836 uIU/mL (0.358-3.74) Free Thyroxine 0.87 ng/dL (0.76-1.46) Free Triiodothyronine (T3) pg/mL 2.27 pg/mL (2.18-3.98) Allergies: Coded Allergies: amoxicillin (Verified Allergy, Intermediate, Rash, 01/21/15) mirtazapine (Verified Allergy, Intermediate, WILD DREAMS, 01/22/15) "WILD DREAMS" trazodone (Verified Allergy, Intermediate, HEADACHE, 01/22/15) HEADACHE cefdinir (Verified Adverse Reaction, Intermediate, Nausea and Vomiting, ) Medications: Current Medications Medications (Trade) Dose Ordered Sig/Lorraine Route PRN Reason Start Time Stop Time Status Last Admin Dose Admin Aspirin (Children'S Aspirin) 324 mg 1X ONCE PO 11/04/17 08:00 11/04/17 08:01 DC 11/04/17 07:51 Acetaminophen (Tylenol) 1,000 mg 1X ONCE PO 11/04/17 08:00 11/04/17 08:01 DC 11/04/17 07:50 Imaging: Imaging: CXR IMPRESSION: No acute cardiopulmonary abnormality is detected. MPI PENDING Echocardiogram PENDING PE: GEN: NAD, eating a cheeseburger and fries HEENT: Atraumatic, PERRL LUNGS: CTAB HEART: RRR - left upper chest tender to palpation ABD: NABS, S/ND/NT EXTREMITY: No edema SKIN: No rashes, no jaundice NEURO/PSYCH: A & O 3 OTHER: present w/ 6 month old baby A/P: A/P: Atypical chest pain GERD -?Bautista's - past EGD w/ Dr. Vásquez -takes PPI PRN IBS -has changed from diarrhea to constipation back to diarrhea -bothersome mostly post-prandially but can occur during the night -atbx use a few months ago, didn't complete stool studies as outpt CRC screen - UTD Diverticulosis S/p cholecystectomy -- Would take PPI QD and follow-up for EGD. Suspect IBS-D, could try Colestid, etc. With recent antibiotic use, consider stool studies. YI MCKEON Nov 04, 2017 14:41
[2017-11-04 15:00] VITALS: BP 135/78
[2017-11-04] MEDS ORDERED: LIDOCAINE (700MG/PATCH) PATCH. TD SCH (15:00)
[2017-11-04] MEDS ORDERED: LOSARTAN POTASSIUM 50 MG TABLET. PO SCH (16:00)
[2017-11-04 16:18] VITALS: BP 135/78
--- NOTE | 2017-11-04 16:19 | RAD ---
MR#: [id number] Date of Study: 11/04/2017 Ordering Physician: GREGORIO LANCASTER, Referring Physician: CAROL GARCIA Tech: BRITT Dejesus APPROVED REPORT Test Type: Pharmacological Stress Nurse/Tech: Joanie Saavedra RN Test Indications: Chest pain Cardiac History: smoker,family history Medications: See Electronic Medical Record Medical History: See Electronic Medical Record Resting ECG: SB Resting Heart Rate: 53 bpm Resting Blood Pressure: 133/79mmHg Pretest Chest Pain: Atypical angina Nurse/Tech Notes S1,S2 and lungs are diminished throughout. Consent: The procedure was explained to the patient in lay terms. Informed consent was witnessed. [place] eout was entered into fflap. History and Stress Test performed by Joanie Saavedra RN Pharm. Details Pharmacologic stress testing was performed using 0.4mg per 5ml of regadenoson given intravenously ove r 7-10 seconds. Stress Symptoms Headache, Dizziness POST EXERCISE Reason for Termination: Infusion complete Target HR: No Max HR: 87 bpm Max Blood Pressure: 141/78mmHg Blood Pressure response to exercise: Normal blood pressure response during stress. Heart Rate response to exercise: WNL Chest Pain: No. Arrhythmia: No. INTERPRETATION Stress EKG Conclusion: The resting EKG shows a sinus rhythm with mild nonspecific ST-T wave changes. The stress EKG shows no significant changes from baseline. No EKG evidence of stressed induced ischemia. Imaging Protocol IMAGE PROTOCOL: Rest Tc-99m/stress Tc-99m 1 day Rest: Stress: Viability: Radiopharm.Tc99m [id number] Sestamibi Dose10.1mCi 33.9mCi Duration 17min. 12min. Img Date 11/04/2017 11/04/2017 Inj-Img [id number]. 60min. Rest Admin Site:IV - Left AntecubitalAdministrator:BRITT Dejesus Stress Admin Site: IV - Left AntecubitalAdministrator: BRITT Dejesus STRESS DATA End Diast. Vol.51.0mlAv. Heart Rate65.0bpm End Syst. Vol.7.0mlCO Index BSA0.0L/min Myocardial Hzdw102.0gEject. Tsgckktw85.0% Stress Rates Pk. Fill Rate3.36EDV/secLVtime Pk. Fill 267.58msec Pk. Empty Rate4.87ESV/secLVtime Pk. Lgrpz707.17msec 1/3 Pk. Fill1.24EDV/sec Stress Scores Regional WT2.00Summed WT6.00 Regional WM0.00Summed WM1.00 LV Perfusion The stress scans showed no significant defects. The rest scans showed no significant defects. Nuclear imaging shows no reversible ischemia or infarct. Wall Motion Left ventricular systolic function is normal with an ejection fraction of greater than 70%. LV Perf. Quant 17 Seg. SSS0.00 17 Seg. SRS0.00 17 Seg. SDS0.00 Stress Defect Extent (% LAD)0.00Rest Defect Extent (% LAD)0.00Rev. Defect Extent (% LAD)0.00 Stress Defect Extent (% LCX) 0.00Rest Defect Extent (% LCX)0.00Rev. Defect Extent (% LCX)0.00 Stress Defect Extent (% RCA)0.00Rest Defect Extent (% RCA)0.00Rev. Defect Extent (% RCA)0.00 Stress Defect Extent (% PAULA)0.00Rest Defect Extent (% PAULA)0.00Rev. Defect Extent (% PAULA)0.00 Conclusion 1. No EKG evidence of stressed induced ischemia. 2. Nuclear imaging shows no reversible ischemia or infarct. 3. Normal left ventricular systolic function with an ejection fraction of greater than 70%. 4. Low risk Lexiscan nuclear stress test. Signed by : Rai Lenz MD Electronically Approved : 11/04/2017 16:19:04
--- NOTE | 2017-11-04 16:22 | CARD ---
MR#: [id number] Date of Study: 11/04/2017 Ordering Physician: GREGORIO LANCASTER, Referring Physician: Mikayla GARCIA: FRANCOISE Colon APPROVED REPORT EXAM: Two-dimensional and M-mode echocardiogram with Doppler and color Doppler. Other Information Quality : AverageHR: 60bpm INDICATION Chest Pain Bradycardia 2D DIMENSIONS RVDd3.0 (2.9-3.5cm)Left Atrium(2D)2.9 (1.6-4.0cm) IVSd1.2 (0.7-1.1cm)Aortic Root(2D)3.0 (2.0-3.7cm) LVDd3.5 (3.9-5.9cm)LVOT Diameter1.8 (1.8-2.4cm) PWd1.2 (0.7-1.1cm)LVDs1.7 (2.5-4.0cm) FS (%) 51.0 %SV42.2 ml Aortic Valve AoV Peak Devaughn.127.1cm/sAoV VTI27.7cm AO Peak GR.6.5mmHgLVOT Peak Devaughn.98.3cm/s LVOT VTI 25.23cmAO Mean GR.4mmHg YOANDY (VMAX)1.13hs9AOZ (VTI)2.27cm2 Mitral Valve MV E Wtqqwpca13.7cm/sMV DECEL [id number] MV A Ojuxbfis50.8cm/sMV WXN21iq E/A Ratio1.0MVA (PHT)3.10cm2 TDI E/Lateral E'6.9E/Medial E'12.8 Pulmonary Valve PV Peak Xteaaaeo305.0cm/sPV Peak Grad.4mmHg Tricuspid Valve TR P. Bkgsbriy714yd/sTR Peak Gr.20mmHg LEFT VENTRICLE The left ventricle is normal size. There is mild concentric left ventricular hypertrophy. The left ve ntricular systolic function is normal. Left ventricular ejection fraction is 60-65% There is normal L V segmental wall motion. The left ventricular diastolic function and filling is normal for age. RIGHT VENTRICLE The right ventricle is normal size. The right ventricular systolic function is normal. ATRIA The left atrium size is normal. The right atrium size is normal. The interatrial septum is intact wit h no evidence for an atrial septal defect or patent foramen ovale as noted on 2-D or Doppler imaging. AORTIC VALVE The aortic valve is mildly thickened but opens well. Doppler and Color Flow revealed no significant a ortic regurgitation. There is no significant aortic valvular stenosis. There is no aortic valvular ve getation. MITRAL VALVE The mitral valve is normal in structure and function. There is no evidence of mitral valve prolapse. There is no mitral valve stenosis. Doppler and Color Flow revealed no mitral valve regurgitation note d. TRICUSPID VALVE The tricuspid valve is not well visualized. Doppler and Color Flow revealed trace tricuspid regurgita tion. There is no tricuspid valve stenosis. PULMONIC VALVE The pulmonic valve is not well visualized. Doppler and Color Flow revealed no pulmonic valvular regur gitation. There is no pulmonic valvular stenosis. GREAT VESSELS The aortic root is normal in size. The IVC is normal in size and collapses >50% with inspiration. PERICARDIAL EFFUSION There is no pleural effusion. There is no evidence of significant pericardial effusion. Critical Notification Critical Value: No <Conclusion> The left ventricle is normal size. The left ventricular systolic function is normal. Left ventricular ejection fraction is 60-65% There is mild concentric left ventricular hypertrophy. There is no significant aortic valvular stenosis. Doppler and Color Flow revealed no significant aortic regurgitation. Doppler and Color Flow revealed no mitral valve regurgitation noted. Doppler and Color Flow revealed trace tricuspid regurgitation. Signed by : Rai Lenz MD Electronically Approved : 11/04/2017 16:21:57
[2017-11-04] MEDS ORDERED: PATCH REMOVAL. MC SCH (21:00)
[2017-11-04] MEDS ORDERED: ATORVASTATIN CALCIUM 40 MG TABLET. PO SCH (21:00)
[2017-11-04] MEDS ORDERED: VENLAFAXINE HCL 37.5 MG PO SCH (21:00)
[2017-11-04] MEDS ORDERED: NORTRIPTYLINE 25 MG CAPSULE PO PRN (21:00)
[2017-11-04] MEDS ORDERED: ATORVASTATIN CALCIUM 20 MG TABLET PO SCH (21:00)
[2017-11-04] MEDS ORDERED: NON FORMULARY ITEM (Suvorexant (Belsomra) 20 MG) PO SCH (21:00)
[2017-11-05] MEDS ORDERED: PANTOPRAZOLE 40 MG TABLET.DR. PO SCH (07:30)
== END 2017-11-04 17:36 | disposition home or self-care (01) | DRG 206 ==
LOC: ER 06:41 → 5 NORTH 08:30
PROVIDERS: ADMIT Internal Medicine; ATTEND Internal Medicine
DX: M94.0 Chondrocostal junction syndrome [Tietze] (principal); E66.9 Obesity, unspecified; E78.00 Pure hypercholesterolemia, unspecified; E78.5 Hyperlipidemia, unspecified; F17.210 Nicotine dependence, cigarettes, uncomplicated; F32.9 Major depressive disorder, single episode, unspecified; F41.9 Anxiety disorder, unspecified; G47.33 Obstructive sleep apnea (adult) (pediatric); I10 Essential (primary) hypertension; I44.0 Atrioventricular block, first degree; G56.00 Carpal tunnel syndrome, unspecified upper limb; K22.70 Barrett's esophagus without dysplasia; K58.0 Irritable bowel syndrome with diarrhea; K21.9 Gastro-esophageal reflux disease without esophagitis; K57.90 Diverticulosis of intestine, part unspecified, without perforation or abscess without bleeding; M19.90 Unspecified osteoarthritis, unspecified site; Z87.440 Personal history of urinary (tract) infections; Z68.33 Body mass index [BMI] 33.0-33.9, adult; Z82.49 Family history of ischemic heart disease and other diseases of the circulatory system; Z90.49 Acquired absence of other specified parts of digestive tract; Z90.710 Acquired absence of both cervix and uterus; Z90.89 Acquired absence of other organs; Z88.1 Allergy status to other antibiotic agents; Z88.8 Allergy status to other drugs, medicaments and biological substances; Z79.899 Other long term (current) drug therapy; Z90.722 Acquired absence of ovaries, bilateral; Z98.1 Arthrodesis status
CPT/HCPCS: 36415; 71045; 78452; 80053; 80061; 84439; 84443; 84481; 84484; 85025; 85379; 85610; 93005; 93017; 93306; 96374; 96375; 96376; 99406; A9500; J2785; 99285-25

== ENCOUNTER 2018-05-16 23:44 | Emergency (ER) | payer OTHER ==
[~2018-05-16] VITALS: Ht 157.5 cm; Wt 81.6 kg
[~2018-05-16 23:44] MED LIST changes: -GABA-586 PO; +GABA300C18 PO; +LIDO700A39 TD; -OXYC-323 PO; +OXYC1TAB15 PO; +SUVO20TA PO; +VENL37.5 PO
[2018-05-17 00:18] LABS: BILIRUBIN,URINE SMALL (NEG); CLARITY,URINE TURBID; COLOR,URINE AMBER; NITRITE,URINE NEGATIVE (NEG); PROTEIN,URINE 100 mg/dL (NEG-TRACE)
[2018-05-17 00:27] LABS: BACTERIA,URINE MODERATE /HPF (0-FEW); SQUAMOUS EPITHELIAL CELL,UR FEW /LPF; WBC,URINE TNTC /HPF (0-4)
[2018-05-17] MEDS ORDERED: NITROGLYCERIN SUBLINGUAL 0.4 MG BOTTLE OF 25. SL PRN (00:30)
[2018-05-17] MEDS ORDERED: ASPIRIN CHEWABLE 81 MG TABLET. PO ONE (00:30)
--- NOTE | 2018-05-17 00:32 | PHYS DOC ---
Past Medical History Past Medical History: Arthritis, Diverticulitis, High Cholesterol, Hypertension , IBS, Migraines, Other Additional Past Medical Histor: insomnia Past Surgical History: Appendectomy, Cholecystectomy, Hysterectomy, Tonsillectomy Additional Past Surgical Histo: bilat carpel tunnel, rt hip sg, rectal prolapse , hemroridectomy, back sg Alcohol Use: Rarely Drug Use: None Adult General Chief Complaint Chief Complaint: PAIN ON URINATION HPI HPI 68-year-old female presents with a chief complaint of dysuria. Patient states onset of symptoms this a.m. Patient denies any fevers or chills no blood in urine. She also complains of left lower back pain. Patient states onset of symptoms Tuesday night located in the left buttocks radiating down left leg. Patient denies any injuries she's been taking Flexeril and naproxen with minimal improvement. Pain is now only located in her left buttocks region. Review of Systems Review of Systems Constitutional: Denies fever or chills [] Eyes: Denies change in visual acuity, redness, or eye pain [] HENT: Denies nasal congestion or sore throat [] Respiratory: Denies cough or shortness of breath [] Cardiovascular: No additional information not addressed in HPI [] GI: Denies abdominal pain, nausea, vomiting, bloody stools or diarrhea [] : Denies dysuria or hematuria [] Musculoskeletal: Denies back pain or joint pain [] Integument: Denies rash or skin lesions [] Neurologic: Denies headache, focal weakness or sensory changes [] Endocrine: Denies polyuria or polydipsia [] All other systems were reviewed and found to be within normal limits, except as documented in this note. Current Medications Current Medications Current Medications Medications (Trade) Dose Ordered Sig/Lorraine Start Time Stop Time Status Last Admin Dose Admin Aspirin (Children'S Aspirin) 324 mg 1X ONCE 05/17/18 00:30 05/17/18 00:44 DC Nitroglycerin (Nitrostat) 0.4 mg PRN Q5MIN PRN 05/17/18 00:30 05/17/18 00:44 DC Allergies Allergies Allergies Coded Allergies Type Severity Reaction Last Updated Verified amoxicillin Allergy Intermediate Rash 01/21/15 Yes mirtazapine Allergy Intermediate WILD DREAMS 01/22/15 Yes trazodone Allergy Intermediate HEADACHE 01/22/15 Yes cefdinir Adverse Reaction Intermediate Nausea and Vomiting 01/22/15 Yes Physical Exam Physical Exam Constitutional: Well developed, well nourished, no acute distress, non-toxic appearance. [] HENT: Normocephalic, atraumatic, bilateral external ears normal, oropharynx moist, no oral exudates, nose normal. [] Eyes: PERRLA, EOMI, conjunctiva normal, no discharge. [] Neck: Normal range of motion, no tenderness, supple, no stridor. [] Cardiovascular:Heart rate regular rhythm, no murmur [] Lungs & Thorax: Bilateral breath sounds clear to auscultation [] Abdomen: Bowel sounds normal, soft, no tenderness, no masses, no pulsatile masses. [] Skin: Warm, dry, no erythema, no rash. [] Back: , no CVA tenderness. [tenderness to palpation right buttocks] Extremities: No tenderness, no cyanosis, no clubbing, ROM intact, no edema. [] Neurologic: Alert and oriented X 3, normal motor function, normal sensory function, no focal deficits noted. [ambulates with steady gait] Psychologic: Affect normal, judgement normal, mood normal. [] Current Patient Data Vital Signs Vital Signs Date Time Temp Pulse Resp B/P (MAP) Pulse Ox O2 Delivery O2 Flow Rate FiO2 05/17/18 01:00 68 14 131/76 (94) 97 Room Air 05/16/18 23:50 98.0 98.0 Lab Values Laboratory Tests Test 05/17/18 00:02 Urine Collection Type Unknown Urine Color Olga Urine Clarity Turbid Urine pH 6.0 Urine Specific [place] 1.020 Urine Protein 100 mg/dL (NEG-TRACE) Urine Glucose (UA) Negative mg/dL (NEG) Urine Ketones (Stick) Trace mg/dL (NEG) Urine Blood Moderate (NEG) Urine Nitrite Negative (NEG) Urine Bilirubin Small (NEG) Urine Urobilinogen Dipstick 1.0 mg/dL (0.2 mg/dL) Urine Leukocyte Esterase Large (NEG) Urine RBC 6-10 /HPF (0-2) Urine WBC Tntc /HPF (0-4) Urine Squamous Epithelial Cells Few /LPF Urine Bacteria Moderate /HPF (0-FEW) Urine Mucus Slight /LPF EKG EKG [] Radiology/Procedures Radiology/Procedures [] Course & Med Decision Making Course & Med Decision Making Pertinent Labs and Imaging studies reviewed. (See chart for details) []Patient's urine consistent with urinary tract infection. Patient was discharged home on Cipro. Tylenol #3 for back pain. Dragon Disclaimer Dragon Disclaimer This electronic medical record was generated, in whole or in part, using a voice recognition dictation system. Departure Departure Referrals: GREGORIA MCGRATH (PCP) Scripts Acetaminophen With Codeine (TYLENOL WITH CODEINE #3 TABLET) 1 Each Tablet 1 TAB PO PRN Q6HRS PRN for PAIN for 10 Days, #14 TAB Prov: GERALDINE OMALLEY DO 05/17/18 Ciprofloxacin Hcl (CIPRO) 250 Mg Tablet 250 MG PO BID for 7 Days, TAB Prov: GERALDINE OMALLEY DO 05/17/18 GERALDINE OMALLEY DO May 17, 2018 00:32
[2018-05-17 01:00] VITALS: BP 131/76
[2018-05-17] MEDS ORDERED: ACET-704 PO (01:19)
[2018-05-17] MEDS ORDERED: CIPR250T30 PO (01:19)
== END 2018-05-17 01:20 | disposition home or self-care (01) ==
LOC: ER 23:44
DX: R30.0 Dysuria (principal); E78.00 Pure hypercholesterolemia, unspecified; I10 Essential (primary) hypertension; G43.909 Migraine, unspecified, not intractable, without status migrainosus; K58.9 Irritable bowel syndrome, unspecified; Z90.710 Acquired absence of both cervix and uterus; Z90.89 Acquired absence of other organs; Z90.49 Acquired absence of other specified parts of digestive tract; Z88.1 Allergy status to other antibiotic agents; Z88.8 Allergy status to other drugs, medicaments and biological substances; Z98.890 Other specified postprocedural states
CPT/HCPCS: 81001; 87086; 99283

== ENCOUNTER → 2018-11-20 | Outpatient (CLI) | payer OTHER ==
[~2018-11-20] MED LIST changes: +ACET-704 PO; +CIPR250T30 PO; +CONTRAST GIVEN. MC PRN; +IOHEXOL 240 MG/ML 50ML VIAL. PO ONE; +IOHEXOL 300 MG/ML 100ML VIAL. IV ONE; +LIDO700A21 TD; -LIDO700A39 TD
--- NOTE | 2018-11-20 17:22 | RAD ---
PQRS Compliance statement: One or more of the following individualized dose reduction techniques were utilized for this examination: 1. Automated exposure control. 2. Adjustment of the mA and/or kV according to patient size. 3. Use of iterative reconstruction technique. Indication:Diverticulitis. Abdominal pain. TECHNIQUE: CT abdomen and pelvis with IV contrast with multiplanar reformats. COMPARISON: None FINDINGS: Heart is normal in size. No pericardial or pleural effusion. Clear lung bases. Liver, spleen, pancreas, adrenals within normal limits. Status post cholecystectomy. Couple of too small to characterize low attenuating lesions are seen in the right kidney. No nephrolithiasis or hydronephrosis. No free pelvic fluid or ascites. No enlarged retroperitoneal or pelvic adenopathy. No free pelvic fluid or ascites. Sigmoid diverticulosis with minimal chronic inflammatory changes. No bowel obstruction. Urinary bladder demonstrates no radiopaque stone. No pneumoperitoneum. No suspicious bony lesion. IMPRESSION: 1. Suggestion of mild sigmoid diverticulitis. No bowel obstruction. 2. Too small to characterize right renal lesions likely cyst. Follow-up CT abdomen in 4-6 months recommended.. Electronically signed by: Giovanny Servin DO (11/20/2018 5:19 PM) [facility]
--- NOTE | 2018-11-21 10:43 | RAD ---
Duplex ultrasound of the abdomen History: Abdominal pain Comparison: None. Findings: Multiple grayscale, color, and duplex spectral analysis waveform images of the abdominal vasculature are submitted. Exam was directed toward evaluation of the superior mesenteric and celiac arteries. Hepatic artery was obscured by bowel gas. Velocities in centimeters per second are as follows: Proximal SMA 162, mid SMA 150, distal SMA 157, celiac 116, abdominal aorta 88. No significant stenosis is demonstrated. Impression: 1. Hepatic artery could not be seen due to bowel gas. No significant stenosis was demonstrated of the superior mesenteric or celiac arteries. Electronically signed by: Andrei Rashid MD (11/21/2018 10:40 AM) [facility]
== END | disposition home or self-care (01) ==
LOC: US 15:02
PROVIDERS: ATTEND Internal Medicine Gastroenterology
DX: K57.30 Diverticulosis of large intestine without perforation or abscess without bleeding (principal); N28.89 Other specified disorders of kidney and ureter; R10.9 Unspecified abdominal pain; Z90.49 Acquired absence of other specified parts of digestive tract; I10 Essential (primary) hypertension
CPT/HCPCS: 74177; 93975

== ENCOUNTER 2018-12-18 15:55 | Emergency (ER) | payer OTHER ==
[~2018-12-18] VITALS: Ht 157.5 cm; Wt 78.5 kg
[~2018-12-18 15:55] MED LIST changes: -CONTRAST GIVEN. MC PRN; -IOHEXOL 240 MG/ML 50ML VIAL. PO ONE; -IOHEXOL 300 MG/ML 100ML VIAL. IV ONE; -MAGN400T3 PO; +MAGN400T5 PO
[2018-12-18 17:46] VITALS: BP 126/74
--- NOTE | 2018-12-18 18:27 | PHYS DOC ---
Past Medical History Past Medical History: Arthritis, Diverticulitis, High Cholesterol, Hypert ension, IBS, Migraines, Other Additional Past Medical Histor: insomnia Past Surgical History: Appendectomy, Cholecystectomy, Hysterectomy, Tonsillectomy Additional Past Surgical Histo: bilat carpel tunnel, rt hip sg, rectal prolapse, hemroridectomy, back sg Alcohol Use: Rarely Drug Use: None Adult General Chief Complaint Chief Complaint: RIB PAIN HPI HPI Patient is a 68-year-old female who presents with complaint of left-sided rib pain after falling last night onto her left side. Patient denies any other injuries. She had no loss of consciousness. She states the pain is worsened with movement and with breathing. She rates pain at an 8 out of 10. She states that nothing is improving the pain.[] Review of Systems Review of Systems Constitutional: Denies fever or chills [] Respiratory: Denies cough or shortness of breath [] Cardiovascular: No additional information not addressed in HPI [] GI: Denies abdominal pain, nausea, vomiting or diarrhea [] Musculoskeletal: Positive left sided rib pain [] Integument: Denies rash or skin lesions [] Current Medications Current Medications Current Medications Medications (Trade) Dose Ordered Sig/Lorraine Start Time Stop Time Status Last Admin Dose Admin Acetaminophen/ Hydrocodone Bitart (Lortab 7.5/325) 1 tab 1X ONCE 12/18/18 18:30 12/18/18 18:31 DC 12/18/18 18:29 1 TAB Allergies Allergies Allergies Coded Allergies Type Severity Reaction Last Updated Verified amoxicillin Allergy Intermediate Rash 01/21/15 Yes mirtazapine Allergy Intermediate WILD DREAMS 01/22/15 Yes trazodone Allergy Intermediate HEADACHE 01/22/15 Yes cefdinir Adverse Reaction Intermediate Nausea and Vomiting 01/22/15 Yes Physical Exam Physical Exam Constitutional: Well developed, well nourished, no acute distress, non-toxic appearance. [] Neck: Normal range of motion, no tenderness, supple, no stridor. [] Cardiovascular: Regular rate and rhythm[] Lungs & Thorax: Bilateral breath sounds clear to auscultation. There is reproducible tenderness to palpation along the lateral mid to lower rib margin [] Abdomen: Bowel sounds normal, soft, no tenderness throughout abdomen, particularly no tenderness on deep palpation overlying spleen. [] Skin: Warm, dry, no erythema, no rash. [] Back: No spinous point tenderness, no CVA tenderness. [] Extremities: No tenderness, no cyanosis, no clubbing, ROM intact, no edema. [] Current Patient Data Vital Signs Vital Signs Date Time Temp Pulse Resp B/P (MAP) Pulse Ox O2 Delivery O2 Flow Rate FiO2 12/18/18 18:29 20 97 Room Air 12/18/18 17:46 97.8 65 126/74 (91) 97.8 EKG EKG [] Radiology/Procedures Radiology/Procedures [] Impressions: PROCEDURE: RIBS LEFT AND PA CHEST Ribs left with PA chest History: Pain status post fall PA view of the chest and dedicated views of the left ribs were obtained. The heart and pulmonary vessels appear normal. The lungs and pleural margins are clear. The visualized osseous structures appear intact. Impression: No acute findings. No evidence of a bony displaced rib fracture. Electronically signed by: Mel Silva III, MD (12/18/2018 7:08 PM) [facility] DICTATED and SIGNED BY: MEL SILVA III, MD DATE: 12/18/181907 Course & Med Decision Making Course & Med Decision Making Pertinent Labs and Imaging studies reviewed. (See chart for details) [] Dragon Disclaimer Dragon Disclaimer This electronic medical record was generated, in whole or in part, using a voice recognition dictation system. Departure Departure Impression: Primary Impression: Contusion of rib on left side Disposition: 01 HOME, SELF-CARE Condition: STABLE Referrals: GREGOIRA MCGRATH (PCP) Patient Instructions: Rib Contusion Scripts Hydrocodone/Apap 5-325 (NORCO 5-325 TABLET) 1 Each Tablet 1-2 EACH PO PRN Q6HRS PRN for PAIN, #15 as needed for pain Prov: IVY KAM Jr. DO 12/18/18 Problem Qualifiers Primary Impression: Contusion of rib on left side Encounter type: initial encounter Qualified Codes: S20.212A - Contusion of left front wall of thorax, initial encounter IVY KAM Jr. DO Dec 18, 2018 18:27
[2018-12-18] MEDS ORDERED: HYDROcodone/APAP 7.5/325MG 1 TAB TABLET PO ONE (18:30)
--- NOTE | 2018-12-18 19:11 | RAD ---
Ribs left with PA chest History: Pain status post fall PA view of the chest and dedicated views of the left ribs were obtained. The heart and pulmonary vessels appear normal. The lungs and pleural margins are clear. The visualized osseous structures appear intact. Impression: No acute findings. No evidence of a bony displaced rib fracture. Electronically signed by: Lyle Silva III, MD (12/18/2018 7:08 PM) [facility]
[2018-12-18] MEDS ORDERED: HYDR-3164 PO (19:17)
== END 2018-12-18 19:32 | disposition home or self-care (01) ==
LOC: ER 15:55
DX: S20.212A Contusion of left front wall of thorax, initial encounter (principal); M19.90 Unspecified osteoarthritis, unspecified site; E78.00 Pure hypercholesterolemia, unspecified; I10 Essential (primary) hypertension; G43.909 Migraine, unspecified, not intractable, without status migrainosus; Z90.89 Acquired absence of other organs; Z90.49 Acquired absence of other specified parts of digestive tract; Z90.710 Acquired absence of both cervix and uterus; Z88.1 Allergy status to other antibiotic agents; Z88.8 Allergy status to other drugs, medicaments and biological substances; W18.39XA Other fall on same level, initial encounter; Y93.89 Activity, other specified; Y92.89 Other specified places as the place of occurrence of the external cause; Y99.8 Other external cause status
CPT/HCPCS: 71101; 99284

== ENCOUNTER 2019-12-11 16:45 | Inpatient (IN) | payer OTHER ==
[~2019-12-11] VITALS: Ht 157.5 cm; Wt 91.6 kg
[~2019-12-11 16:45] MED LIST changes: +HYDR-3164 PO
[2019-12-11] MEDS ORDERED: fentaNYL PF VIAL 100 MCG/2 ML VIAL IVP ONE (17:15)
[2019-12-11] MEDS ORDERED: IV NORMAL SALINE 1000ML BAG 1,000 ML IV ONE ×2 (17:15→18:00)
[2019-12-11] MEDS ORDERED: ONDANSETRON PF 4 MG/2 ML VIAL. IVP ONE (17:15)
[2019-12-11 17:16] LABS: BASO # 0.2 x10^3/uL (0.0-0.2); BASO % 2 % (0-3); EOS # 0.1 x10^3/uL (0.0-0.7); EOS % 1 % (0-3); HEMATOCRIT 47.1 % (36.0-47.0); HEMOGLOBIN 15.7 g/dL (12.0-15.5); LYMPH # 2.8 x10^3/uL (1.0-4.8); LYMPH % 23 % (24-48); MEAN CORPUSCULAR HEMOGLOBIN 30 pg (25-35); MEAN CORPUSCULAR HGB CONC 33 g/dL (31-37); MEAN CORPUSCULAR VOLUME 90 fL (79-100); MONO # 0.7 x10^3/uL (0.0-1.1); MONO % 6 % (0-9); NEUT # 8.4 x10^3/uL (1.8-7.7); NEUT % 69 % (31-73); PLATELET COUNT 281 x10^3/uL (140-400); RED BLOOD COUNT 5.25 x10^6/uL (3.50-5.40); RED CELL DISTRIBUTION WIDTH 15.2 % (11.5-14.5); WHITE BLOOD COUNT 12.2 x10^3/uL (4.0-11.0)
[2019-12-11 17:18] LABS: CALCIUM 9.2 mg/dL (8.5-10.1); CREATININE 1.2 mg/dL (0.6-1.0); GFR 54.2; POTASSIUM 3.9 mmol/L (3.5-5.1)
[2019-12-11 17:21] LABS: BILIRUBIN,URINE SMALL (NEG); CLARITY,URINE CLEAR; NITRITE,URINE NEGATIVE (NEG); PROTEIN,URINE 30 mg/dL (NEG-TRACE)
[2019-12-11 17:23] LABS: ALBUMIN 3.2 g/dL (3.4-5.0); ALBUMIN/GLOBULIN RATIO 0.7 (1.0-1.7); MAGNESIUM 2.5 mg/dL (1.8-2.4); TOTAL BILIRUBIN 1.7 mg/dL (0.2-1.0); TOTAL PROTEIN 7.7 g/dL (6.4-8.2)
[2019-12-11 17:30] LABS: COLOR,URINE YELLOW
[2019-12-11 17:31] LABS: HYALINE CASTS, URINE FEW /HPF
[2019-12-11 17:32] LABS: AMORPHOUS SEDIMENT,UR PRESENT /HPF; BACTERIA,URINE 0 /HPF (0-FEW); GRANULAR CASTS,URINE OCCASIONAL /HPF; RBC,URINE 0 /HPF (0-2)
[2019-12-11] MEDS ORDERED: ONDANSETRON PF 4 MG/2 ML VIAL. IV ONE (18:00)
--- NOTE | 2019-12-11 18:44 | RAD ---
CT abdomen and pelvis with contrast History: Abdominal pain, blood in stool Technique: After the administration of intravenous contrast, CT imaging was performed of the abdomen and pelvis. No oral contrast was given. Multiplanar images are reviewed. Exposure: One or more of the following individualized dose reduction techniques were utilized for this examination: 1. Automated exposure control 2. Adjustment of the mA and/or kV according to patient size 3. Use of iterative reconstruction technique. Comparison: November 20, 2018 Findings: There is no significant abnormality of the visualized lung bases. There is no significant abnormality of the liver, spleen, pancreas, adrenal glands. Both kidneys enhance without hydronephrosis. A couple of small hypodense foci of the mid right kidney are stable, too small to further characterize accurately, largest about 0.7 cm. There has been cholecystectomy. Accurate evaluation of bowel is limited without oral contrast. There is diffuse fluid in the colon which has an overall featureless appearance. There is mild sigmoid diverticulosis. Small bowel is not significantly dilated. No free fluid or free air is identified. Appendix is not confidently identified if still present. There is posterolateral fusion hardware L4-S1 with bilateral pedicle screws attached to vertical rods. Impression: 1. There is diffuse fluid in the featureless appearing colon, evidence of colitis. There is mild sigmoid diverticulosis. Electronically signed by: Andrei Rashid MD (12/11/2019 6:41 PM) [facility]
--- NOTE | 2019-12-11 19:41 | PHYS DOC ---
Past Medical History Past Medical History: Arthritis, Diverticulitis, High Cholesterol, Hypertension, IBS, Migraines, Other Additional Past Medical Histor: insomnia Past Surgical History: Appendectomy, Cholecystectomy, Hysterectomy, Tonsillectomy Additional Past Surgical Histo: bilat carpel tunnel, rt hip sg, rectal prolapse, hemroridectomy, back sg Smoking Status: Current Every Day Smoker Alcohol Use: Rarely Drug Use: None General Adult EDM: Chief Complaint: ABDOMINAL PAIN HPI: HPI: Patient is a 69 year old AA female, brought to the emergency room by EMS today with reports of generalized abdominal pain for the last 2 to 3 weeks. Patient reports she is also had nausea, vomiting, and diarrhea for the last 2 weeks. She states that today there was bright red blood in her stool. Patient reports a history of diverticulitis. She denies any fever, cough, shortness of breath, chest pain, palpitations, body aches, fatigue, or headache. She complains of severe lower abdominal pain that she rates a 10 out of 10 on the pain scale, she denies any alleviating factors or radiation of the pain. Review of Systems: Review of Systems: Constitutional: Denies fever or chills. [] HENT: Denies nasal congestion or sore throat. [] Respiratory: Denies cough or shortness of breath. [] Cardiovascular: Denies chest pain or edema. [] GI: See HPI : Denies dysuria. [] Musculoskeletal: Denies back pain or joint pain. [] Integument: Denies rash. [] Neurologic: Denies headache Complete ROS is negative unless otherwise stated in the HPI. Heart Score: Risk Factors: Risk Factors: DM, Current or recent (<one month) smoker, HTN, HLP, family history of CAD, obesity. Risk Scores: Score 0 - 3: 2.5% MACE over next 6 weeks - Discharge Home Score 4 - 6: 20.3% MACE over next 6 weeks - Admit for Clinical Observation Score 7 - 10: 72.7% MACE over next 6 weeks - Early Invasive Strategies Current Medications: Current Medications Medications (Trade) Dose Ordered Sig/Lorraine Start Time Stop Time Status Last Admin Dose Admin Fentanyl Citrate (Fentanyl 2ml Vial) 50 mcg 1X ONCE 12/11/19 17:15 12/11/19 17:16 DC 12/11/19 18:41 50 MCG Ondansetron HCl (Zofran) 4 mg 1X ONCE 12/11/19 18:00 12/11/19 18:01 DC Sodium Chloride 1,000 ml @ 1,000 mls/hr 1X ONCE 12/11/19 18:00 12/11/19 18:59 DC Allergies: Allergies: Allergies Coded Allergies Type Severity Reaction Last Updated Verified amoxicillin Allergy Intermediate Rash 01/21/15 Yes mirtazapine Allergy Intermediate WILD DREAMS 01/22/15 Yes trazodone Allergy Intermediate HEADACHE 01/22/15 Yes cefdinir Adverse Reaction Intermediate Nausea and Vomiting 01/22/15 Yes Physical Exam: PE: Constitutional: Well developed, well nourished, moderate distress distress, appears uncomfortable, non-toxic appearance. [] HENT: Normocephalic, atraumatic, bilateral external ears normal, nose normal. [] Eyes: PERRLA, EOMI, conjunctiva normal, no discharge. [] Neck: Normal range of motion, no stridor. [] Cardiovascular: Heart rate regular rhythm Lungs & Thorax: Respirations even and unlabored, no retractions, no respiratory distress Abdomen: soft, diffuse tenderness to palpation, no guarding Skin: Warm, dry, no erythema, no rash. [] Extremities: No cyanosis, ROM intact, no edema. [] Neurologic: Alert and oriented X 3, no focal deficits noted. [] Psychologic: Affect normal, judgement normal, mood normal. [] Current Patient Data: Labs: Laboratory Tests Test 12/11/19 16:55 12/11/19 16:59 Urine Collection Type U cath Urine Color Yellow Urine Clarity Clear Urine pH 5.0 (<5.0-8.0) Urine Specific [place] 1.020 (1.000-1.030) Urine Protein 30 mg/dL (NEG-TRACE) Urine Glucose (UA) Negative mg/dL (NEG) Urine Ketones (Stick) Trace mg/dL (NEG) Urine Blood Negative (NEG) Urine Nitrite Negative (NEG) Urine Bilirubin Small (NEG) Urine Urobilinogen Dipstick 1.0 mg/dL (0.2 mg/dL) Urine Leukocyte Esterase Small (NEG) Urine RBC 0 /HPF (0-2) Urine WBC 5-10 /HPF (0-4) Urine Squamous Epithelial Cells Few /LPF Urine Transitional Epithelial Cells Few /LPF Urine Amorphous Sediment Present /HPF Urine Bacteria 0 /HPF (0-FEW) Urine Hyaline Casts Few /HPF Urine Granular Casts Occasional /HPF Urine Mucus Marked /LPF White Blood Count 12.2 x10^3/uL (4.0-11.0) H Red Blood Count 5.25 x10^6/uL (3.50-5.40) Hemoglobin 15.7 g/dL (12.0-15.5) H Hematocrit 47.1 % (36.0-47.0) H Mean Corpuscular Volume 90 fL (79-100) Mean Corpuscular Hemoglobin 30 pg (25-35) Mean Corpuscular Hemoglobin Concent 33 g/dL (31-37) Red Cell Distribution Width 15.2 % (11.5-14.5) H Platelet Count 281 x10^3/uL (140-400) Neutrophils (%) (Auto) 69 % (31-73) Lymphocytes (%) (Auto) 23 % (24-48) L Monocytes (%) (Auto) 6 % (0-9) Eosinophils (%) (Auto) 1 % (0-3) Basophils (%) (Auto) 2 % (0-3) Neutrophils # (Auto) 8.4 x10^3/uL (1.8-7.7) H Lymphocytes # (Auto) 2.8 x10^3/uL (1.0-4.8) Monocytes # (Auto) 0.7 x10^3/uL (0.0-1.1) Eosinophils # (Auto) 0.1 x10^3/uL (0.0-0.7) Basophils # (Auto) 0.2 x10^3/uL (0.0-0.2) Sodium Level 143 mmol/L (136-145) Potassium Level 3.9 mmol/L (3.5-5.1) Chloride Level 108 mmol/L (98-107) H Carbon Dioxide Level 25 mmol/L (21-32) Anion Gap 10 (6-14) Blood Urea Nitrogen 9 mg/dL (7-20) Creatinine 1.2 mg/dL (0.6-1.0) H Estimated GFR (Cockcroft-Gault) 54.2 BUN/Creatinine Ratio 8 (6-20) Glucose Level 127 mg/dL (70-99) H Calcium Level 9.2 mg/dL (8.5-10.1) Magnesium Level 2.5 mg/dL (1.8-2.4) H Total Bilirubin 1.7 mg/dL (0.2-1.0) H Aspartate Amino Transferase (AST) 52 U/L (15-37) H Alanine Aminotransferase (ALT) 99 U/L (14-59) H Alkaline Phosphatase 158 U/L (46-116) H Total Protein 7.7 g/dL (6.4-8.2) Albumin 3.2 g/dL (3.4-5.0) L Albumin/Globulin Ratio 0.7 (1.0-1.7) L Lipase 199 U/L (73-393) Laboratory Tests 12/11/19 16:59 Laboratory Tests 12/11/19 16:59 Vital Signs: Vital Signs Date Time Temp Pulse Resp B/P (MAP) Pulse Ox O2 Delivery O2 Flow Rate FiO2 12/11/19 19:17 84 134/92 (106) 99 Room Air 12/11/19 18:41 20 12/11/19 16:50 97.5 97.5 EKG: EK-sinus rhythm, leftward axis with a prolonged QT, rate of 82, no STEMI, read by Dr. Hernandez [] Radiology/Procedures: Radiology/Procedures: PROCEDURE: CT ABD PELV W/ IV CONTRST ONLY CT abdomen and pelvis with contrast History: Abdominal pain, blood in stool Technique: After the administration of intravenous contrast, CT imaging was performed of the abdomen and pelvis. No oral contrast was given. Multiplanar images are reviewed. Exposure: One or more of the following individualized dose reduction techniques were utilized for this examination: 1. Automated exposure control 2. Adjustment of the mA and/or kV according to patient size 3. Use of iterative reconstruction technique. Comparison: November 20, 2018 Findings: There is no significant abnormality of the visualized lung bases. There is no significant abnormality of the liver, spleen, pancreas, adrenal glands. Both kidneys enhance without hydronephrosis. A couple of small hypodense foci of the mid right kidney are stable, too small to further characterize accurately, largest about 0.7 cm. There has been cholecystectomy. Accurate evaluation of bowel is limited without oral contrast. There is diffuse fluid in the colon which has an overall featureless appearance. There is mild sigmoid diverticulosis. Small bowel is not significantly dilated. No free fluid or free air is identified. Appendix is not confidently identified if still present. There is posterolateral fusion hardware L4-S1 with bilateral pedicle screws attached to vertical rods. Impression: 1. There is diffuse fluid in the featureless appearing colon, evidence of colitis. There is mild sigmoid diverticulosis.[] Course & Med Decision Making: Course & Med Decision Making Pertinent Labs and Imaging studies reviewed. (See chart for details) 69-year-old female presents emergency department with complaints of abdominal pain, nausea, vomiting, and diarrhea for the last 2 to 3 weeks. She reported bloody stools that began today. CBC revealed a hemoglobin of 15.7, hematocrit of 47.1, white blood cell count of 12.2 otherwise unremarkable; CMP revealed a creatinine of 1.2, glucose of 127, magnesium of 2.5, bilirubin of 1.7, AST of 52, ALT of 99, alk phos of 158, normal lipase; UA revealed a 5-10 white count few squames no nitrates, patient denied any urinary complaints. CT of the patient's abdomen pelvis revealed findings of colitis. Patient was given a liter of normal saline, 4 mg of Zofran, and 50 mcg of fentanyl in the emergency room she reported feeling better after these medications. EKG revealed no acute findings. 1922-spoke with Dr. Gomez who is the admitting physician, and care was assumed following discussion of patient. Will admit patient for colitis Patient's vital signs stable. Patient remains afebrile, appears nontoxic, respirations even and unlabored. Patient will be admitted to the med/surg floor. Patient's case and plan of care also discussed with , will order Flagyl 500 mg IV prior to sending patient to the floor. [] Dragon Disclaimer: Dragon Disclaimer: This electronic medical record was generated, in whole or in part, using a voice recognition dictation system. Departure Departure Referrals: ESVIN FELICIANO MD (PCP) CRISTINA LAWRENCE [employer] Dec 11, 2019 19:41
[2019-12-11] MEDS ORDERED: ALBUTEROL SULFATE 2.5 MG/3 ML NEBU. NEB PRN (20:30)
[2019-12-11] MEDS ORDERED: ACETAMINOPHEN 325 MG TABLET. PO PRN (20:30)
[2019-12-11] MEDS ORDERED: ONDANSETRON PF 4 MG/2 ML VIAL. IV PRN (20:30)
[2019-12-11] MEDS ORDERED: HYDROcodone/APAP 5/325MG 1 TAB TABLET PO PRN (20:30)
[2019-12-11] MEDS ORDERED: ACETAMINOPHEN/CODEINE 300/30MG TABLET. PO PRN (20:30)
[2019-12-11] MEDS ORDERED: DOCUSATE SODIUM 100 MG CAPSULE. PO PRN (20:30)
[2019-12-11] MEDS ORDERED: ZOLPIDEM 5 MG TABLET. PO PRN (20:30)
[2019-12-11] MEDS ORDERED: LORazepam 0.5 MG TABLET PO PRN (20:30)
[2019-12-11] MEDS ORDERED: guaiFENesin ORAL 200 MG/10 ML LIQUID. PO PRN (20:30)
[2019-12-11] MEDS ORDERED: NON FORMULARY ITEM (Suvorexant (Belsomra) 20 MG) PO SCH (21:00)
[2019-12-11] MEDS: ATORVASTATIN CALCIUM 40 MG TABLET. PO SCH (21:00)
[2019-12-11] MEDS: NORTRIPTYLINE 25 MG CAPSULE PO SCH (21:00)
[2019-12-11 21:50] VITALS: BP 135/106
[2019-12-11] MEDS: fentaNYL PF VIAL 100 MCG/2 ML VIAL IVP PRN ×2 (22:28→23:23)
[2019-12-11] MEDS: VENLAFAXINE XR 37.5 MG CAP.ER.24H. PO SCH (22:59)
[2019-12-11] MEDS: CIPROFLOXACIN 400MG PREMIX 200 ML IV SCH (22:59)
[2019-12-11 23:00] VITALS: BP 132/87
[2019-12-11] MEDS ORDERED: ONDA-84 PO (23:12)
[2019-12-12] MEDS ORDERED: PIPERACILLIN/TAZOBACTAM 3.375 GM in IV NORMAL SALINE 50ML 50 ML IV SCH
[2019-12-12] MEDS: fentaNYL PF VIAL 100 MCG/2 ML VIAL IVP PRN ×3 (02:07→08:27)
[2019-12-12 03:00] VITALS: BP 141/94
[2019-12-12 07:00] VITALS: BP 140/90
--- NOTE | 2019-12-12 07:39 | PDOC1 ---
History and Physical Date of Service: DOS: DATE: 12/12/19 TIME: 07:29 Chief Complaint: Chief Complain: ABD pain and bloody stool History of Present Illness: HPI: 69 year old AA female, brought to the emergency room by EMS today with reports of generalized abdominal pain for the last 2 to 3 weeks. Patient reports she is also had nausea, vomiting, and diarrhea for the last 2 weeks. Patient states that her stool is loose and mixed with bright red stool. Denies hematochezia or black stools.. Patient reports a history of diverticulitis and also reports multiple episodes of this in the past before. She denies any fever, cough, shortness of breath, chest pain, palpitations, body aches, fatigue, or headache. She complains of severe lower abdominal pain that she rates a 10 out of 10 on the pain scale, she denies any alleviating factors or radiation of the pain. Past Medical/Surgical History: PMH/PSH: Past Medical History: Arthritis, Diverticulitis, High Cholesterol, Hypertension, IBS, Migraines, insomnia Past Surgical History: Appendectomy, Cholecystectomy, Hysterectomy, Tonsi llectomy, bilat carpel tunnel, rt hip sg, rectal prolapse, hemroridectomy, back sg Allergies: Allergies: Coded Allergies: amoxicillin (Verified Allergy, Intermediate, Rash, 01/21/15) mirtazapine (Verified Allergy, Intermediate, WILD DREAMS, 01/22/15) "WILD DREAMS" trazodone (Verified Allergy, Intermediate, HEADACHE, 01/22/15) HEADACHE cefdinir (Verified Adverse Reaction, Intermediate, Nausea and Vomiting, 01/22/15) Family History: Family History: Reviewed and none reported Social History: Social History: Smoking Status: Current Every Day Smoker Alcohol Use: Rarely Drug Use: None Current Medications: Current Medications Current Medications Sodium Chloride 1,000 ml @ 1,000 mls/hr 1X ONCE IV Last administered on 12/11/19at 18:40; Start 12/11/19 at 17:15; Stop 12/11/19 at 18:14; Status DC Ondansetron HCl (Zofran) 4 mg 1X ONCE IVP Last administered on 12/11/19at 18:40; Start 12/11/19 at 17:15; Stop 12/11/19 at 17:16; Status DC Fentanyl Citrate (Fentanyl 2ml Vial) 50 mcg 1X ONCE IVP Last administered on 12/11/19at 18:41; Start 12/11/19 at 17:15; Stop 12/11/19 at 17:16; Status DC Sodium Chloride 1,000 ml @ 1,000 mls/hr 1X ONCE IV Last administered on 12/11/19at 22:58; Start 12/11/19 at 18:00; Stop 12/11/19 at 18:59; Status DC Ondansetron HCl (Zofran) 4 mg 1X ONCE IV ; Start 12/11/19 at 18:00; Stop 12/11/19 at 18:01; Status DC Metronidazole 100 ml @ 100 mls/hr 1X ONCE IV Last administered on 12/11/19at 20:01; Start 12/11/19 at 19:45; Stop 12/11/19 at 20:44; Status DC Ondansetron HCl (Zofran) 4 mg PRN Q4HRS PRN IV NAUSEA/VOMITING; Start 12/11/19 at 20:30 Zolpidem Tartrate (Ambien) 5 mg PRN QHS PRN PO INSOMNIA; Start 12/11/19 at 2 0:30 Acetaminophen (Tylenol) 650 mg PRN Q4HRS PRN PO TEMP OVER 100.4F OR MILD PAIN; Start 12/11/19 at 20:30 Docusate Sodium (Colace) 100 mg PRN BID PRN PO HARD STOOLS; Start 12/11/19 at 20:30 Albuterol Sulfate (Ventolin Neb Soln) 2.5 mg PRN Q4HRS PRN NEB SHORTNESS OF BREATH; Start 12/11/19 at 20:30 Guaifenesin (Robitussin) 200 mg PRN Q4HRS PRN PO COUGH; Start 12/11/19 at 20:30 Lorazepam (Ativan) 0.5 mg PRN Q4HRS PRN PO ANXIETY / AGITATION; Start 12/11/19 at 20:30 Piperacillin Sod/ Tazobactam Sod 3.375 gm/Sodium Chloride 50 ml @ 100 mls/hr Q6HRS IV ; Start 12/12/19 at 00:00; Stop 12/11/19 at 20:43; Status DC Acetaminophen/ Codeine Phosphate (Tylenol #3) 1 tab PRN Q6HRS PRN PO MODERATE PAIN; Start 12/11/19 at 20:30 Acetaminophen/ Hydrocodone Bitart (Lortab 5/325) 1 tab PRN Q6HRS PRN PO SEVERE PAIN; Start 12/11/19 at 20:30 Lidocaine (Lidoderm) 1 patch DAILY TD ; Start 12/12/19 at 09:00 Venlafaxine HCl (Effexor Xr) 37.5 mg BID PO Last administered on 12/11/19at 22:59; Start 12/11/19 at 21:00 Pantoprazole Sodium (Protonix) 40 mg DAILYAC PO ; Start 12/12/19 at 07:30 Nortriptyline HCl (Pamelor) 50 mg QHS PO ; Start 12/11/19 at 21:00 Losartan Potassium (Cozaar) 100 mg DAILY PO ; Start 12/12/19 at 09:00 Atorvastatin Calcium (Lipitor) 80 mg QHS PO ; Start 12/11/19 at 21:00 Non-Formulary Medication (Suvorexant (Belsomra)) 20 mg HS PO ; Start 12/11/19 at 21:00; Status UNV Ciprofloxacin/ Dextrose 200 ml @ 200 mls/hr Q12HR IV Last administered on 12/11/19at 22:59; Start 12/11/19 at 21:00 Metronidazole 100 ml @ 100 mls/hr Q8HRS IV Last administered on 12/12/19at 05:24; Start 12/11/19 at 22:00 Fentanyl Citrate (Fentanyl 2ml Vial) 50 mcg PRN Q3HRS PRN IVP PAIN Last administered on 12/12/19at 05:23; Start 12/11/19 at 22:15 Active Scripts Active [place] 5-325 Tablet (Acetaminophen/Hydrocodone Bitart) 1 Each Tablet 1-2 Each PO PRN Q6HRS PRN as needed for pain Cipro (Ciprofloxacin Hcl) 250 Mg Tablet 250 Mg PO BID 7 Days Reported Ondansetron Hcl 4 Mg Tablet 1 Tab PO PRN Q6HRS Belsomra (Suvorexant) 20 Mg Tablet 20 Mg PO HS Effexor Xr (Venlafaxine Hcl) 37.5 Mg Cap.er.24h 37.5 Mg PO BID Nexium Capsule (Esomeprazole Magnesium) 40 Mg Capsule.dr 40 Mg PO DAILYAC LAST DOSE GIVEN: DATE:01-22-15 TIME:8:30 a.m. NEXT DOSE DUE: DATE:01-23-15 TIME:8:30 a.m. Crestor (Rosuvastatin Calcium) 10 Mg Tablet 20 Mg PO DAILY LAST DOSE GIVEN: DATE:01-21-15 TIME:9:00 p.m. NEXT DOSE DUE: DATE:01-22-15 TIME:9:00 p.m. ROS: Review of Systems Review of System REVIEW OF SYSTEMS: GENERAL: Denies weakness SKIN: No bruising, hair changes or rashes. EYES: No blurred, double or loss of vision. NOSE AND THROAT: No history of nosebleeds, hoarseness or sore throat. HEART: No history of palpitations, chest pain or shortness of breath on exertion. LUNGS: Denies cough, hemoptysis, wheezing or shortness of breath. GASTROINTESTINAL: Denies changes in appetite, nausea, vomiting, diarrhea or constipation. GENITOURINARY: No history of frequency, urgency, hesitancy or nocturia. NEUROLOGIC: Denies history of numbness, tingling, or tremor. PSYCHIATRIC: No history of panic, anxiety or depression. ENDOCRINE: No history of heat or cold intolerance, polyuria or polydipsia. EXTREMITIES: Denies joint pain, pain on walking or stiffness. Physical Exam: Vital Signs: Vital Signs Date Time Temp Pulse Resp B/P (MAP) Pulse Ox O2 Delivery O2 Flow Rate FiO2 12/12/19 07:00 97.8 69 17 140/90 (107) 97 Room Air 97.8 Physcial Exam: GEN: No apparent distress. Alert and oriented HEENT: Normal cephalic, atraumatic, external auditory canals are patent EYES: Extraocular muscles are intact, pupil are equally round and reactive to light and accommodation MUSCULOSKELETAL: Well developed , well nourished, good range of motion ENDOCRINE: No thyromegaly was palpated LYMPHATICS: No cervical chain or axillary nodes were noted HEMATOPOIETIC: No bruising NECK: Supple, no JVD, no thyromegaly was noted LUNGS: Clear to auscultation in all lung zhou without rhonchi or wheezing HEART: RRR, S!, S2 present. Peripheral pulses intact, no obvious murmurs noted ABDOMEN: Soft, nontender. Positive bowel sounds, no organomegaly, normal bowel sounds EXTREMITIES: Without clubbing, cyanosis, or edema. Pedal pulses intact. Negative Homans sign NEUROLOGIC: Normal speech and tone. A&O x 3, moves all extremities, no obvious focal deficits PSYCHIATRIC: Normal affect, normal mood. Stable SKIN: No ulcerations or rashes, good skin turgor, no jaundice VASCULAR: Good capillary refill, neurovascular bundle appears to be intact Labs: Labs: Laboratory Tests Test 12/11/19 16:55 12/11/19 16:59 Urine Collection Type U cath Urine Color Yellow Urine Clarity Clear Urine pH 5.0 (<5.0-8.0) Urine Specific [place] 1.020 (1.000-1.030) Urine Protein 30 mg/dL (NEG-TRACE) Urine Glucose (UA) Negative mg/dL (NEG) Urine Ketones (Stick) Trace mg/dL (NEG) Urine Blood Negative (NEG) Urine Nitrite Negative (NEG) Urine Bilirubin Small (NEG) Urine Urobilinogen Dipstick 1.0 mg/dL (0.2 mg/dL) Urine Leukocyte Esterase Small (NEG) Urine RBC 0 /HPF (0-2) Urine WBC 5-10 /HPF (0-4) Urine Squamous Epithelial Cells Few /LPF Urine Transitional Epithelial Cells Few /LPF Urine Amorphous Sediment Present /HPF Urine Bacteria 0 /HPF (0-FEW) Urine Hyaline Casts Few /HPF Urine Granular Casts Occasional /HPF Urine Mucus Marked /LPF White Blood Count 12.2 x10^3/uL (4.0-11.0) Red Blood Count 5.25 x10^6/uL (3.50-5.40) Hemoglobin 15.7 g/dL (12.0-15.5) Hematocrit 47.1 % (36.0-47.0) Mean Corpuscular Volume 90 fL (79-100) Mean Corpuscular Hemoglobin 30 pg (25-35) Mean Corpuscular Hemoglobin Concent 33 g/dL (31-37) Red Cell Distribution Width 15.2 % (11.5-14.5) Platelet Count 281 x10^3/uL (140-400) Neutrophils (%) (Auto) 69 % (31-73) Lymphocytes (%) (Auto) 23 % (24-48) Monocytes (%) (Auto) 6 % (0-9) Eosinophils (%) (Auto) 1 % (0-3) Basophils (%) (Auto) 2 % (0-3) Neutrophils # (Auto) 8.4 x10^3/uL (1.8-7.7) Lymphocytes # (Auto) 2.8 x10^3/uL (1.0-4.8) Monocytes # (Auto) 0.7 x10^3/uL (0.0-1.1) Eosinophils # (Auto) 0.1 x10^3/uL (0.0-0.7) Basophils # (Auto) 0.2 x10^3/uL (0.0-0.2) Sodium Level 143 mmol/L (136-145) Potassium Level 3.9 mmol/L (3.5-5.1) Chloride Level 108 mmol/L (98-107) Carbon Dioxide Level 25 mmol/L (21-32) Anion Gap 10 (6-14) Blood Urea Nitrogen 9 mg/dL (7-20) Creatinine 1.2 mg/dL (0.6-1.0) Estimated GFR (Cockcroft-Gault) 54.2 BUN/Creatinine Ratio 8 (6-20) Glucose Level 127 mg/dL (70-99) Calcium Level 9.2 mg/dL (8.5-10.1) Magnesium Level 2.5 mg/dL (1.8-2.4) Total Bilirubin 1.7 mg/dL (0.2-1.0) Aspartate Amino Transf (AST/SGOT) 52 U/L (15-37) Alanine Aminotransferase (ALT/SGPT) 99 U/L (14-59) Alkaline Phosphatase 158 U/L (46-116) Total Protein 7.7 g/dL (6.4-8.2) Albumin 3.2 g/dL (3.4-5.0) Albumin/Globulin Ratio 0.7 (1.0-1.7) Lipase 199 U/L (73-393) Laboratory Tests Test 12/11/19 16:55 12/11/19 16:59 Urine Collection Type U cath Urine Color Yellow Urine Clarity Clear Urine pH 5.0 (<5.0-8.0) Urine Specific [place] 1.020 (1.000-1.030) Urine Protein 30 mg/dL (NEG-TRACE) Urine Glucose (UA) Negative mg/dL (NEG) Urine Ketones (Stick) Trace mg/dL (NEG) Urine Blood Negative (NEG) Urine Nitrite Negative (NEG) Urine Bilirubin Small (NEG) Urine Urobilinogen Dipstick 1.0 mg/dL (0.2 mg/dL) Urine Leukocyte Esterase Small (NEG) Urine RBC 0 /HPF (0-2) Urine WBC 5-10 /HPF (0-4) Urine Squamous Epithelial Cells Few /LPF Urine Transitional Epithelial Cells Few /LPF Urine Amorphous Sediment Present /HPF Urine Bacteria 0 /HPF (0-FEW) Urine Hyaline Casts Few /HPF Urine Granular Casts Occasional /HPF Urine Mucus Marked /LPF White Blood Count 12.2 x10^3/uL (4.0-11.0) Red Blood Count 5.25 x10^6/uL (3.50-5.40) Hemoglobin 15.7 g/dL (12.0-15.5) Hematocrit 47.1 % (36.0-47.0) Mean Corpuscular Volume 90 fL (79-100) Mean Corpuscular Hemoglobin 30 pg (25-35) Mean Corpuscular Hemoglobin Concent 33 g/dL (31-37) Red Cell Distribution Width 15.2 % (11.5-14.5) Platelet Count 281 x10^3/uL (140-400) Neutrophils (%) (Auto) 69 % (31-73) Lymphocytes (%) (Auto) 23 % (24-48) Monocytes (%) (Auto) 6 % (0-9) Eosinophils (%) (Auto) 1 % (0-3) Basophils (%) (Auto) 2 % (0-3) Neutrophils # (Auto) 8.4 x10^3/uL (1.8-7.7) Lymphocytes # (Auto) 2.8 x10^3/uL (1.0-4.8) Monocytes # (Auto) 0.7 x10^3/uL (0.0-1.1) Eosinophils # (Auto) 0.1 x10^3/uL (0.0-0.7) Basophils # (Auto) 0.2 x10^3/uL (0.0-0.2) Sodium Level 143 mmol/L (136-145) Potassium Level 3.9 mmol/L (3.5-5.1) Chloride Level 108 mmol/L (98-107) Carbon Dioxide Level 25 mmol/L (21-32) Anion Gap 10 (6-14) Blood Urea Nitrogen 9 mg/dL (7-20) Creatinine 1.2 mg/dL (0.6-1.0) Estimated GFR (Cockcroft-Gault) 54.2 BUN/Creatinine Ratio 8 (6-20) Glucose Level 127 mg/dL (70-99) Calcium Level 9.2 mg/dL (8.5-10.1) Magnesium Level 2.5 mg/dL (1.8-2.4) Total Bilirubin 1.7 mg/dL (0.2-1.0) Aspartate Amino Transf (AST/SGOT) 52 U/L (15-37) Alanine Aminotransferase (ALT/SGPT) 99 U/L (14-59) Alkaline Phosphatase 158 U/L (46-116) Total Protein 7.7 g/dL (6.4-8.2) Albumin 3.2 g/dL (3.4-5.0) Albumin/Globulin Ratio 0.7 (1.0-1.7) Lipase 199 U/L (73-393) Images: Images CT ABD/pelvis Assessment/Plan Assessment/Plan Abdominal pain due to lower GI bleed Intractable nausea vomiting Polycythemia likely due to volume depletion VINH due to vasomotor nephropathy Tobacco use disorder Transaminitis Admit to medicine for further management GI consult FOBT Trend hemoglobin No PRBC needed at this time SCD for DVT prophylaxis ADA diet Full code Discussed with RN and SW Disposition pending GI evaluation Surrogate decision maker is Gregorio Robertson Smoking cessation: Total time spent was > 12 minutes in face to face counseling. Patient has been undecided whether to quit or not. Justifications for Admission Other Justification EBONY CAPONE MD Dec 12, 2019 07:39
[2019-12-12] MEDS ORDERED: FLU VACC QS 2020-21(6MOS+)/PF 0.5 ML SYRINGE. VAX IM ONE (08:00)
[2019-12-12] MEDS: PANTOPRAZOLE 40 MG TABLET.DR. PO SCH (08:21)
[2019-12-12] MEDS: VENLAFAXINE XR 37.5 MG CAP.ER.24H. PO SCH ×2 (08:22→20:58)
[2019-12-12] MEDS: LOSARTAN POTASSIUM 50 MG TABLET. PO SCH (08:23)
[2019-12-12] MEDS: LIDOCAINE (700MG/PATCH) PATCH. TD SCH (08:24)
[2019-12-12] MEDS: CIPROFLOXACIN 400MG PREMIX 200 ML IV SCH ×2 (08:24→20:27)
[2019-12-12] MEDS: IV NORMAL SALINE 1000ML BAG 1,000 ML IV SCH ×3 (10:15→20:28)
[2019-12-12 10:43] VITALS: BP 147/90
[2019-12-12] MEDS: MORPHINE SULFATE 2 MG/ML VIAL. IV PRN ×3 (11:20→17:08)
--- NOTE | 2019-12-12 11:37 | PDOC2 ---
GI CONSULT Date of Service: DATE: 12/12/19 TIME: 11:24 Reason For Consult: colitis HPI: HPI: 69 y/o female admitted through ER seen in her room this morning w/ Dr. Arreola. Diffuse abdominal pain ("my whole stomach") since yesterday associated w/ nausea and some narrowing of stools. Denies diarrhea. Also indicates she really hasn't eaten much since Tuesday. H/o GERD on PPI QD and IBS w/ alternating bowel habits. Last encounter (for atypical chest pain in 2018)mentioned constipation (took Linzess) w/ straining and bleeding attributed to hemorrhoids. Also past use of Librax and dicyclomine. Fiber also suggested. Thinks EGD and colonoscopy w/ Dr. Vásquez in ~2017 - seems w/ reflux or question of Bautista's esophagus and diverticular disease. S/p cholecystectomy. Previously reported question of pancreatitis and Crohn's disease when she saw Dr. Sarah Smith - never treated for IBD. No dysphagia, vomiting, or constipation. PMH: PMH: HTN, HLD, RAFA, migraines, anxiety, OA, UTI, nephrolithiasis, hypothyroidism appendectomy, cholecystectomy, tonsillectomy, hysterectomy, BSO, lumbar fusion, removal of lipoma (right hip), hemorrhoidectomy, rectal prolapse repair, bilateral CTR FH: Family History: CAD, Other Social History: ALCOHOL: rare Drugs: None ROS: GEN: Denies fevers, chills, sweats HEENT: Denies blurred vision, sore throat CV: Denies chest pain RESP: Denies shortness of air, cough GI: Per HPI : Denies hematuria, dysuria ENDO: Denies weight changes NEURO: Denies confusion, dizziness MSK: Denies weakness, joint pain/swelling SKIN: Denies jaundice, pruritus Vitals: Vitals: Vital Signs Date Time Temp Pulse Resp B/P (MAP) Pulse Ox O2 Delivery O2 Flow Rate FiO2 12/12/19 11:20 Room Air 12/12/19 10:43 98.1 93 17 147/90 (109) 94 98.1 Labs: Labs: Laboratory Tests Test 12/11/19 16:55 12/11/19 16:59 Urine Collection Type U cath Urine Color Yellow Urine Clarity Clear Urine pH 5.0 (<5.0-8.0) Urine Specific [place] 1.020 (1.000-1.030) Urine Protein 30 mg/dL (NEG-TRACE) Urine Glucose (UA) Negative mg/dL (NEG) Urine Ketones (Stick) Trace mg/dL (NEG) Urine Blood Negative (NEG) Urine Nitrite Negative (NEG) Urine Bilirubin Small (NEG) Urine Urobilinogen Dipstick 1.0 mg/dL (0.2 mg/dL) Urine Leukocyte Esterase Small (NEG) Urine RBC 0 /HPF (0-2) Urine WBC 5-10 /HPF (0-4) Urine Squamous Epithelial Cells Few /LPF Urine Transitional Epithelial Cells Few /LPF Urine Amorphous Sediment Present /HPF Urine Bacteria 0 /HPF (0-FEW) Urine Hyaline Casts Few /HPF Urine Granular Casts Occasional /HPF Urine Mucus Marked /LPF White Blood Count 12.2 x10^3/uL (4.0-11.0) Red Blood Count 5.25 x10^6/uL (3.50-5.40) Hemoglobin 15.7 g/dL (12.0-15.5) Hematocrit 47.1 % (36.0-47.0) Mean Corpuscular Volume 90 fL (79-100) Mean Corpuscular Hemoglobin 30 pg (25-35) Mean Corpuscular Hemoglobin Concent 33 g/dL (31-37) Red Cell Distribution Width 15.2 % (11.5-14.5) Platelet Count 281 x10^3/uL (140-400) Neutrophils (%) (Auto) 69 % (31-73) Lymphocytes (%) (Auto) 23 % (24-48) Monocytes (%) (Auto) 6 % (0-9) Eosinophils (%) (Auto) 1 % (0-3) Basophils (%) (Auto) 2 % (0-3) Neutrophils # (Auto) 8.4 x10^3/uL (1.8-7.7) Lymphocytes # (Auto) 2.8 x10^3/uL (1.0-4.8) Monocytes # (Auto) 0.7 x10^3/uL (0.0-1.1) Eosinophils # (Auto) 0.1 x10^3/uL (0.0-0.7) Basophils # (Auto) 0.2 x10^3/uL (0.0-0.2) Sodium Level 143 mmol/L (136-145) Potassium Level 3.9 mmol/L (3.5-5.1) Chloride Level 108 mmol/L (98-107) Carbon Dioxide Level 25 mmol/L (21-32) Anion Gap 10 (6-14) Blood Urea Nitrogen 9 mg/dL (7-20) Creatinine 1.2 mg/dL (0.6-1.0) Estimated GFR (Cockcroft-Gault) 54.2 BUN/Creatinine Ratio 8 (6-20) Glucose Level 127 mg/dL (70-99) Calcium Level 9.2 mg/dL (8.5-10.1) Magnesium Level 2.5 mg/dL (1.8-2.4) Total Bilirubin 1.7 mg/dL (0.2-1.0) Aspartate Amino Transf (AST/SGOT) 52 U/L (15-37) Alanine Aminotransferase (ALT/SGPT) 99 U/L (14-59) Alkaline Phosphatase 158 U/L (46-116) Total Protein 7.7 g/dL (6.4-8.2) Albumin 3.2 g/dL (3.4-5.0) Albumin/Globulin Ratio 0.7 (1.0-1.7) Lipase 199 U/L (73-393) Allergies: Coded Allergies: amoxicillin (Verified Allergy, Intermediate, Rash, 01/21/15) mirtazapine (Verified Allergy, Intermediate, WILD DREAMS, 01/22/15) "WILD DREAMS" trazodone (Verified Allergy, Intermediate, HEADACHE, 01/22/15) HEADACHE cefdinir (Verified Adverse Reaction, Intermediate, Nausea and Vomiting, 01/22/15) Medications: Current Medications Medications (Trade) Dose Ordered Sig/Lorraine Route PRN Reason Start Time Stop Time Status Last Admin Dose Admin Sodium Chloride 1,000 ml @ 1,000 mls/hr 1X ONCE IV 12/11/19 17:15 12/11/19 18:14 DC 12/11/19 18:40 Ondansetron HCl (Zofran) 4 mg 1X ONCE IVP 12/11/19 17:15 12/11/19 17:16 DC 12/11/19 18:40 Fentanyl Citrate (Fentanyl 2ml Vial) 50 mcg 1X ONCE IVP 12/11/19 17:15 12/11/19 17:16 DC 12/11/19 18:41 Sodium Chloride 1,000 ml @ 1,000 mls/hr 1X ONCE IV 12/11/19 18:00 12/11/19 18:59 DC 12/11/19 22:58 Metronidazole 100 ml @ 100 mls/hr 1X ONCE IV 12/11/19 19:45 12/11/19 20:44 DC 12/11/19 20:01 Venlafaxine HCl (Effexor Xr) 37.5 mg BID PO 12/11/19 21:00 12/11/19 22:59 Pantoprazole Sodium (Protonix) 40 mg DAILYAC PO 12/12/19 07:30 12/12/19 08:21 Ciprofloxacin/ Dextrose 200 ml @ 200 mls/hr Q12HR IV 12/11/19 21:00 12/12/19 08:24 Metronidazole 100 ml @ 100 mls/hr Q8HRS IV 12/11/19 22:00 12/12/19 05:24 Fentanyl Citrate (Fentanyl 2ml Vial) 50 mcg PRN Q3HRS PRN IVP PAIN 12/11/19 22:15 12/12/19 08:27 Sodium Chloride 1,000 ml @ 100 mls/hr Q10H IV 12/12/19 10:15 12/12/19 10:15 Morphine Sulfate (Morphine Sulfate) 2 mg PRN Q2HR PRN IV PAIN 12/12/19 11:00 12/12/19 11:20 Imaging: Imaging: CT A/P Findings: There is no significant abnormality of the visualized lung bases. There is no significant abnormality of the liver, spleen, pancreas, adrenal glands. Both kidneys enhance without hydronephrosis. A couple of small hypodense foci of the mid right kidney are stable, too small to further characterize accurately, largest about 0.7 cm. There has been cholecystectomy. Accurate evaluation of bowel is limited without oral contrast. There is diffuse fluid in the colon which has an overall featureless appearance. There is mild sigmoid diverticulosis. Small bowel is not significantly dilated. No free fluid or free air is identified. Appendix is not confidently identified if still present. There is posterolateral fusion hardware L4-S1 with bilateral pedicle screws attached to vertical rods. Impression: 1. There is diffuse fluid in the featureless appearing colon, evidence of colitis. There is mild sigmoid diverticulosis. PE: GEN: NAD HEENT: Atraumatic, PERRL LUNGS: CTAB HEART: RRR ABD: NABS, S/ND, worst tenderness LLQ - some epigastrium EXTREMITY: No edema SKIN: No rashes, no jaundice NEURO/PSYCH: A & O 3 A/P: A/P: Abdominal pain, nausea Abnormal CT - diffuse fluid in the featureless appearing colon Leukocytosis, mildly elevated LFTs GERD - on PPI CRC screen - UTD H/o IBS Diverticulosis H/o hemorrhoids/bleeding - normal Hgb S/p cholecystectomy -- ?diverticulitis - pain worst in LLQ on exam - continue atbx No reports of diarrhea to us which speaks again "colitis." Monitor LFTs - normal liver on CT. Continue PPI for h/o GERD. Has NPO orders - could try clears. YI MCKEON Dec 12, 2019 11:36
--- NOTE | 2019-12-12 14:15 | NUR ---
SW following. Spoke with RN and reviewed chart. Pt from home with spouse. SW met with pt who stated no concerns about returning home at discharge. Pt on room air, IV pain medications. SW following but there are no anticipated needs at discharge.
[2019-12-12 15:00] VITALS: BP 149/82
[2019-12-12] MEDS ORDERED: NALOXONE 0.4 MG/ML VIAL. IV PRN (18:45)
[2019-12-12] MEDS ORDERED: HYDROmorphone 12mg/30ml PCA 30 ML IV PRN (18:45)
[2019-12-12 19:00] VITALS: BP 144/80
[2019-12-12] MEDS: NORTRIPTYLINE 25 MG CAPSULE PO SCH (20:58)
[2019-12-12] MEDS: ATORVASTATIN CALCIUM 40 MG TABLET. PO SCH (20:58)
[2019-12-12 23:00] VITALS: BP 127/74
[2019-12-13 03:00] VITALS: BP 117/84
[2019-12-13 07:00] VITALS: BP 105/51
[2019-12-13] MEDS: VENLAFAXINE XR 37.5 MG CAP.ER.24H. PO SCH ×2 (09:00→20:31)
[2019-12-13] MEDS: LOSARTAN POTASSIUM 50 MG TABLET. PO SCH (09:00)
[2019-12-13] MEDS: LIDOCAINE (700MG/PATCH) PATCH. TD SCH (09:00)
[2019-12-13] MEDS: PANTOPRAZOLE 40 MG TABLET.DR. PO SCH (09:04)
[2019-12-13] MEDS: IV NORMAL SALINE 1000ML BAG 1,000 ML IV SCH ×3 (09:07→18:42)
[2019-12-13] MEDS: CIPROFLOXACIN 400MG PREMIX 200 ML IV SCH ×2 (09:07→20:30)
--- NOTE | 2019-12-13 10:15 | PDOC ---
Date of Service: DATE: 12/13/19 TIME: 10:13 Subjective: Subjective: Pain better. Now reports watery stools x 2 - large amount. Objective: Vital Signs: Vital Signs Date Time Temp Pulse Resp B/P (MAP) Pulse Ox O2 Delivery O2 Flow Rate FiO2 12/13/19 07:00 98.0 96 18 105/51 (69) 95 Room Air 98.0 12/12/19 21:13 1.5 Labs: URINE CULTURE Final Final No Growth on 12/13/19 at 0953 PE: GEN: appears more comfortable today LUNGS: CTAB HEART: RRR ABD: less LLQ discomfort NEURO/PSYCH: A & O 3 A/P: Abdominal pain - better Diarrhea Abnormal CT - diffuse fluid in the featureless appearing colon - ?diverticulitis (though now reports diarrhea) Leukocytosis, mildly elevated LFTs -- No labs today - recheck, add stool studies. Try clear liquids. Justicifation of Admission Dx: Justifications for Admission: Justification of Admission Dx: Yes YI MCKEON Dec 13, 2019 10:15
[2019-12-13 11:00] VITALS: BP 103/62
[2019-12-13 12:41] LABS: HEMATOCRIT 38.2 % (36.0-47.0); HEMOGLOBIN 12.7 g/dL (12.0-15.5); RED BLOOD COUNT 4.21 x10^6/uL (3.50-5.40); RED CELL DISTRIBUTION WIDTH 15.6 % (11.5-14.5); WHITE BLOOD COUNT 10.3 x10^3/uL (4.0-11.0)
[2019-12-13 13:05] LABS: ALBUMIN 2.1 g/dL (3.4-5.0); ALBUMIN/GLOBULIN RATIO 0.7 (1.0-1.7); CALCIUM 7.6 mg/dL (8.5-10.1); CREATININE 1.1 mg/dL (0.6-1.0); GFR 59.9; TOTAL BILIRUBIN 1.3 mg/dL (0.2-1.0); TOTAL PROTEIN 5.3 g/dL (6.4-8.2)
[2019-12-13 13:30] LABS: FECAL OB PT POSITIVE (NEG)
[2019-12-13 15:00] VITALS: BP 113/65
--- NOTE | 2019-12-13 15:34 | NUR ---
SW following. Spoke with RN and reviewed chart. Discharge plan remains home, self-care. Pt remains on room air and oral medciations.SW available as needed.
--- NOTE | 2019-12-13 15:42 | PDOC ---
[facility] PROGRESS NOTE Date of Service DOS: DATE: 12/13/19 TIME: 15:39 Chief Complaint Chief Complaint Abdominal pain due to lower GI bleed Intractable nausea vomiting Polycythemia likely due to volume depletion VINH due to vasomotor nephropathy Tobacco use disorder Transaminitis Admit to medicine for further management GI consult FOBT Trend hemoglobin No PRBC needed at this time SCD for DVT prophylaxis ADA diet Full code History of Present Illness History of Present Illness 69 year old AA female, brought to the emergency room by EMS today with reports of generalized abdominal pain for the last 2 to 3 weeks. Patient reports she is also had nausea, vomiting, and diarrhea for the last 2 weeks. Patient states that her stool is loose and mixed with bright red stool. Denies hematochezia or black stools.. Patient reports a history of diverticulitis and also reports multiple episodes of this in the past before. She denies any fever, cough, shortness of breath, chest pain, palpitations, body aches, fatigue, or headache. She complains of severe lower abdominal pain that she rates a 10 out of 10 on the pain scale, she denies any alleviating factors or radiation of the pain. Patient notes improvement in her abdominal pain. She has not needed to use her CUSTOMER SUPPORT AGENT pump overnight. She would be agreeable to oral pain medications. Still having loose stools. Discussed with RN. Vitals/I&O Vitals/I&O: Vital Signs Date Time Temp Pulse Resp B/P (MAP) Pulse Ox O2 Delivery O2 Flow Rate FiO2 12/13/19 11:00 97.7 80 18 103/62 (76) 94 Room Air 97.7 12/12/19 21:13 1.5 I & O 12/12/19 12/12/19 12/13/19 15:00 23:00 07:00 Intake Total 300 ml 0 ml 0 ml Balance 300 ml 0 ml 0 ml Physical Exam General: Alert Heart: Regular rate Lungs: Clear Abdomen: Soft Extremities: No clubbing, No cyanosis Skin: No rashes Labs Labs: Laboratory Tests Test 12/13/19 12:00 12/13/19 13:00 White Blood Count 10.3 x10^3/uL (4.0-11.0) Red Blood Count 4.21 x10^6/uL (3.50-5.40) Hemoglobin 12.7 g/dL (12.0-15.5) Hematocrit 38.2 % (36.0-47.0) Mean Corpuscular Volume 91 fL (79-100) Mean Corpuscular Hemoglobin 30 pg (25-35) Mean Corpuscular Hemoglobin Concent 33 g/dL (31-37) Red Cell Distribution Width 15.6 % (11.5-14.5) Platelet Count 199 x10^3/uL (140-400) Sodium Level 146 mmol/L (136-145) Potassium Level 3.0 mmol/L (3.5-5.1) Chloride Level 112 mmol/L (98-107) Carbon Dioxide Level 30 mmol/L (21-32) Anion Gap 4 (6-14) Blood Urea Nitrogen 10 mg/dL (7-20) Creatinine 1.1 mg/dL (0.6-1.0) Estimated GFR (Cockcroft-Gault) 59.9 BUN/Creatinine Ratio 9 (6-20) Glucose Level 100 mg/dL (70-99) Calcium Level 7.6 mg/dL (8.5-10.1) Total Bilirubin 1.3 mg/dL (0.2-1.0) Aspartate Amino Transf (AST/SGOT) 26 U/L (15-37) Alanine Aminotransferase (ALT/SGPT) 45 U/L (14-59) Alkaline Phosphatase 92 U/L (46-116) Total Protein 5.3 g/dL (6.4-8.2) Albumin 2.1 g/dL (3.4-5.0) Albumin/Globulin Ratio 0.7 (1.0-1.7) Stool Occult Blood Positive (NEG) Review of Systems Review of Systems: Abdominal pain, diarrhea. Denies fever, denies shortness of breath, denies chest pain. Assessment and Plan Problems: (1) Colitis Comment Review of Relevant I have reviewed the following items anjel (where applicable) has been applied. Medications: Current Medications Medications (Trade) Dose Ordered Sig/Lorraine Route PRN Reason Start Time Stop Time Status Last Admin Dose Admin Sodium Chloride 1,000 ml @ 25 mls/hr Q24H IV 12/12/19 18:42 12/12/19 20:27 Hydromorphone HCl 30 ml @ 0 mls/hr CONT PRN PRN IV PER PROTOCOL 12/12/19 18:45 12/12/19 20:43 Justifications for Admission Other Justification BHARAT BAXTER MD Dec 13, 2019 15:42
[2019-12-13] MEDS ORDERED: HYDROmorphone 2 MG TABLET PO PRN (15:45)
[2019-12-13 19:00] VITALS: BP 128/74
--- NOTE | 2019-12-13 19:20 | NUR ---
The patient was started on clear liquids today, diet tolerated. She reports of pain 4 to 6/10, dilaudid LSAT INSTRUCTOR helping. At 1530 dilaudid LSAT INSTRUCTOR discontinued, hospitalist told this nurse that patient prefers PO meds.
[2019-12-13] MEDS: HYDROmorphone 4 MG TABLET PO PRN (20:31)
[2019-12-13] MEDS: NORTRIPTYLINE 25 MG CAPSULE PO SCH ×2 (20:31→20:33)
[2019-12-13] MEDS: ATORVASTATIN CALCIUM 40 MG TABLET. PO SCH (20:31)
[2019-12-13 23:00] VITALS: BP 110/59
[2019-12-14] MEDS: IV NORMAL SALINE 1000ML BAG 1,000 ML IV SCH ×3 (02:10→22:40)
[2019-12-14 03:04] VITALS: BP 132/74
[2019-12-14 05:09] LABS: BASO # 0.1 x10^3/uL (0.0-0.2); BASO % 1 % (0-3); EOS # 0.1 x10^3/uL (0.0-0.7); EOS % 1 % (0-3); HEMATOCRIT 37.7 % (36.0-47.0); HEMOGLOBIN 12.7 g/dL (12.0-15.5); LYMPH # 1.9 x10^3/uL (1.0-4.8); LYMPH % 21 % (24-48); MEAN CORPUSCULAR HEMOGLOBIN 31 pg (25-35); MEAN CORPUSCULAR HGB CONC 34 g/dL (31-37); MEAN CORPUSCULAR VOLUME 91 fL (79-100); MONO # 0.8 x10^3/uL (0.0-1.1); MONO % 9 % (0-9); NEUT % 67 % (31-73); PLATELET COUNT 198 x10^3/uL (140-400); RED BLOOD COUNT 4.14 x10^6/uL (3.50-5.40); RED CELL DISTRIBUTION WIDTH 15.3 % (11.5-14.5); WHITE BLOOD COUNT 8.9 x10^3/uL (4.0-11.0)
[2019-12-14 05:49] LABS: CALCIUM 7.7 mg/dL (8.5-10.1); GFR 66.9; POTASSIUM 3.1 mmol/L (3.5-5.1)
[2019-12-14] MEDS: HYDROmorphone 4 MG TABLET PO PRN (06:46)
[2019-12-14 07:00] VITALS: BP 105/58
[2019-12-14] MEDS: LIDOCAINE (700MG/PATCH) PATCH. TD SCH (09:00)
[2019-12-14] MEDS: CIPROFLOXACIN 400MG PREMIX 200 ML IV SCH ×2 (09:47→21:03)
[2019-12-14] MEDS: LOSARTAN POTASSIUM 50 MG TABLET. PO SCH (09:48)
[2019-12-14] MEDS: PANTOPRAZOLE 40 MG TABLET.DR. PO SCH (09:48)
[2019-12-14] MEDS: VENLAFAXINE XR 37.5 MG CAP.ER.24H. PO SCH ×2 (09:48→21:05)
--- NOTE | 2019-12-14 10:58 | PDOC ---
Date of Service: DATE: 12/14/19 TIME: 10:51 Subjective: Subjective: Pain and diarrhea are better but has nausea, not interested in advancing diet beyond clears. Objective: Objective: PO Dilaudid, IV Cipro and Flagyl. Vital Signs: Vital Signs Date Time Temp Pulse Resp B/P (MAP) Pulse Ox O2 Delivery O2 Flow Rate FiO2 12/14/19 09:48 75 105/58 12/14/19 07:00 98.4 17 94 Room Air 98.4 Labs: Laboratory Tests Test 12/13/19 12:00 12/13/19 13:00 12/14/19 04:20 White Blood Count 10.3 x10^3/uL 8.9 x10^3/uL Red Blood Count 4.21 x10^6/uL 4.14 x10^6/uL Hemoglobin 12.7 g/dL 12.7 g/dL Hematocrit 38.2 % 37.7 % Mean Corpuscular Volume 91 fL 91 fL Mean Corpuscular Hemoglobin 30 pg 31 pg Mean Corpuscular Hemoglobin Concent 33 g/dL 34 g/dL Red Cell Distribution Width 15.6 % 15.3 % Platelet Count 199 x10^3/uL 198 x10^3/uL Sodium Level 146 mmol/L 148 mmol/L Potassium Level 3.0 mmol/L 3.1 mmol/L Chloride Level 112 mmol/L 113 mmol/L Carbon Dioxide Level 30 mmol/L 30 mmol/L Anion Gap 4 5 Blood Urea Nitrogen 10 mg/dL 5 mg/dL Creatinine 1.1 mg/dL 1.0 mg/dL Estimated GFR (Cockcroft-Gault) 59.9 66.9 BUN/Creatinine Ratio 9 Glucose Level 100 mg/dL 116 mg/dL Calcium Level 7.6 mg/dL 7.7 mg/dL Total Bilirubin 1.3 mg/dL Aspartate Amino Transf (AST/SGOT) 26 U/L Alanine Aminotransferase (ALT/SGPT) 45 U/L Alkaline Phosphatase 92 U/L Total Protein 5.3 g/dL Albumin 2.1 g/dL Albumin/Globulin Ratio 0.7 Stool Occult Blood Positive Stool Campylobacter PCR Negative Stool E. coli Shiga Toxins (PCR) Negative Stool Salmonella PCR Negative Stool Shigella PCR Negative Clostridium difficile Toxin (PCR) Negative Neutrophils (%) (Auto) 67 % Lymphocytes (%) (Auto) 21 % Monocytes (%) (Auto) 9 % Eosinophils (%) (Auto) 1 % Basophils (%) (Auto) 1 % Neutrophils # (Auto) 6.0 x10^3/uL Lymphocytes # (Auto) 1.9 x10^3/uL Monocytes # (Auto) 0.8 x10^3/uL Eosinophils # (Auto) 0.1 x10^3/uL Basophils # (Auto) 0.1 x10^3/uL PE: GEN: NAD LUNGS: CTAB HEART: RRR ABD: S/ND/NT NEURO/PSYCH: A & O 3 A/P: Abdominal pain - resolving Diarrhea - improved, stool tests neg. Abnormal CT - diffuse fluid in the featureless appearing colon - ?di verticulitis -- Requests something for nausea - has IV Zofran already ordered. Can advance diet as able. Justicifation of Admission Dx: Justifications for Admission: Justification of Admission Dx: Yes YI MCKEON Dec 14, 2019 10:58
[2019-12-14 11:00] VITALS: BP 118/65
--- NOTE | 2019-12-14 12:55 | PDOC ---
[facility] PROGRESS NOTE Date of Service DOS: DATE: 12/14/19 TIME: 12:54 Chief Complaint Chief Complaint Abdominal pain due to lower GI bleed Intractable nausea vomiting Polycythemia likely due to volume depletion VINH due to vasomotor nephropathy Tobacco use disorder Transaminitis IV Zofran today for nausea that has not improved Admit to medicine for further management GI consult FOBT Trend hemoglobin No PRBC needed at this time SCD for DVT prophylaxis ADA diet Full code History of Present Illness History of Present Illness 69 year old AA female, brought to the emergency room by EMS today with reports of generalized abdominal pain for the last 2 to 3 weeks. Patient reports she is also had nausea, vomiting, and diarrhea for the last 2 weeks. Patient states that her stool is loose and mixed with bright red stool. Denies hematochezia or black stools.. Patient reports a history of diverticulitis and also reports multiple episodes of this in the past before. She denies any fever, cough, shortness of breath, chest pain, palpitations, body aches, fatigue, or headache. She complains of severe lower abdominal pain that she rates a 10 out of 10 on the pain scale, she denies any alleviating factors or radiation of the pain. Patient notes improvement in her abdominal pain. She has not needed to use her RUN LEAD pump overnight. She would be agreeable to oral pain medications. Still having loose stools. Discussed with RN. 12/14/2019 No acute events overnight. Patient has improvement in her abdominal pain. She is currently on a clear liquid diet but has worsening nausea. Denies fevers or coughing spells. IV Zofran ordered for her. No imaging today. Patient's chart, labs, images were reviewed and discussed with RN Vitals/I&O Vitals/I&O: Vital Signs Date Time Temp Pulse Resp B/P (MAP) Pulse Ox O2 Delivery O2 Flow Rate FiO2 12/14/19 11:00 97.6 64 18 118/65 (82) 93 97.6 12/14/19 08:00 Room Air I & O 12/13/19 12/13/19 12/14/19 15:00 23:00 07:00 Intake Total 980 ml 980 ml 240 ml Balance 980 ml 980 ml 240 ml Physical Exam Physical Exam: GEN: No apparent distress. Alert and oriented HEENT: Normal cephalic, atraumatic, external auditory canals are patent NECK: Supple, no JVD, no thyromegaly was noted LUNGS: Bilateral clear HEART: RRR, S1, S2 present. Peripheral pulses intact, no obvious murmurs noted ABDOMEN: Soft, nontender. Positive bowel sounds, no organomegaly, normal bowel sounds EXTREMITIES: Without clubbing, cyanosis, or edema. Pedal pulses intact. Negative Homans sign General: Alert Heart: Regular rate Lungs: Clear Abdomen: Soft Extremities: No clubbing, No cyanosis Skin: No rashes Labs Labs: Laboratory Tests Test 12/13/19 13:00 12/14/19 04:20 Stool Occult Blood Positive (NEG) Stool Campylobacter PCR Negative (NEGATIVE) Stool E. coli Shiga Toxins (PCR) Negative (NEGATIVE) Stool Salmonella PCR Negative (NEGATIVE) Stool Shigella PCR Negative (NEGATIVE) Clostridium difficile Toxin (PCR) Negative (NEGATIVE) White Blood Count 8.9 x10^3/uL (4.0-11.0) Red Blood Count 4.14 x10^6/uL (3.50-5.40) Hemoglobin 12.7 g/dL (12.0-15.5) Hematocrit 37.7 % (36.0-47.0) Mean Corpuscular Volume 91 fL (79-100) Mean Corpuscular Hemoglobin 31 pg (25-35) Mean Corpuscular Hemoglobin Concent 34 g/dL (31-37) Red Cell Distribution Width 15.3 % (11.5-14.5) Platelet Count 198 x10^3/uL (140-400) Neutrophils (%) (Auto) 67 % (31-73) Lymphocytes (%) (Auto) 21 % (24-48) Monocytes (%) (Auto) 9 % (0-9) Eosinophils (%) (Auto) 1 % (0-3) Basophils (%) (Auto) 1 % (0-3) Neutrophils # (Auto) 6.0 x10^3/uL (1.8-7.7) Lymphocytes # (Auto) 1.9 x10^3/uL (1.0-4.8) Monocytes # (Auto) 0.8 x10^3/uL (0.0-1.1) Eosinophils # (Auto) 0.1 x10^3/uL (0.0-0.7) Basophils # (Auto) 0.1 x10^3/uL (0.0-0.2) Sodium Level 148 mmol/L (136-145) Potassium Level 3.1 mmol/L (3.5-5.1) Chloride Level 113 mmol/L (98-107) Carbon Dioxide Level 30 mmol/L (21-32) Anion Gap 5 (6-14) Blood Urea Nitrogen 5 mg/dL (7-20) Creatinine 1.0 mg/dL (0.6-1.0) Estimated GFR (Cockcroft-Gault) 66.9 Glucose Level 116 mg/dL (70-99) Calcium Level 7.7 mg/dL (8.5-10.1) Comment Review of Relevant I have reviewed the following items anjel (where applicable) has been applied. Medications: Current Medications Medications (Trade) Dose Ordered Sig/Lorraine Route PRN Reason Start Time Stop Time Status Last Admin Dose Admin Hydromorphone HCl (Dilaudid) 4 mg PRN Q4HRS PRN PO SEVERE PAIN- 2ND CHOICE 12/13/19 15:45 12/14/19 06:46 Justifications for Admission Other Justification EBONY CAPONE MD Dec 14, 2019 12:55
[2019-12-14 15:00] VITALS: BP 99/51
--- NOTE | 2019-12-14 16:09 | NUR ---
SW following. Spoke with RN and reviewed chart. Discharge plan remains home, self-care. No SW needs per RN.
[2019-12-14 19:00] VITALS: BP 124/70
[2019-12-14] MEDS: NORTRIPTYLINE 25 MG CAPSULE PO SCH (21:00)
[2019-12-14] MEDS: ATORVASTATIN CALCIUM 40 MG TABLET. PO SCH (21:05)
[2019-12-14] MEDS: LACTOBACILLUS RHAMNOSUS GG 1 CAPSULE. PO SCH (21:05)
[2019-12-14 23:00] VITALS: BP 109/61
[2019-12-15 03:00] VITALS: BP 112/67
[2019-12-15 07:00] VITALS: BP 118/64
[2019-12-15 07:14] LABS: BASO % 1 % (0-3); EOS # 0.1 x10^3/uL (0.0-0.7); EOS % 2 % (0-3); HEMATOCRIT 35.5 % (36.0-47.0); HEMOGLOBIN 11.9 g/dL (12.0-15.5); LYMPH # 1.6 x10^3/uL (1.0-4.8); LYMPH % 23 % (24-48); MEAN CORPUSCULAR HEMOGLOBIN 30 pg (25-35); MEAN CORPUSCULAR HGB CONC 34 g/dL (31-37); MEAN CORPUSCULAR VOLUME 90 fL (79-100); MONO # 0.5 x10^3/uL (0.0-1.1); MONO % 8 % (0-9); NEUT # 4.7 x10^3/uL (1.8-7.7); NEUT % 67 % (31-73); PLATELET COUNT 193 x10^3/uL (140-400); RED BLOOD COUNT 3.94 x10^6/uL (3.50-5.40); RED CELL DISTRIBUTION WIDTH 15.2 % (11.5-14.5)
[2019-12-15] MEDS ORDERED: POTASSIUM CHLORIDE 20 MEQ TABLET.ER. PO ONE ×2 (07:30→12:00)
[2019-12-15 07:38] LABS: CALCIUM 7.5 mg/dL (8.5-10.1); CREATININE 0.8 mg/dL (0.6-1.0); GFR 86.6
[2019-12-15 07:40] LABS: POTASSIUM 2.8 mmol/L (3.5-5.1)
[2019-12-15] MEDS: PANTOPRAZOLE 40 MG TABLET.DR. PO SCH (08:54)
[2019-12-15] MEDS: VENLAFAXINE XR 37.5 MG CAP.ER.24H. PO SCH (08:54)
[2019-12-15] MEDS: LACTOBACILLUS RHAMNOSUS GG 1 CAPSULE. PO SCH (08:55)
[2019-12-15] MEDS: LOSARTAN POTASSIUM 50 MG TABLET. PO SCH (08:55)
[2019-12-15] MEDS: POTASSIUM CHLORIDE 10MEQ 100 ML IV SCH ×4 (08:55→12:58)
[2019-12-15] MEDS: LIDOCAINE (700MG/PATCH) PATCH. TD SCH (08:56)
[2019-12-15] MEDS: IV NORMAL SALINE 1000ML BAG 1,000 ML IV SCH (10:15)
[2019-12-15 10:38] VITALS: BP 124/60
[2019-12-15] MEDS: CIPROFLOXACIN 400MG PREMIX 200 ML IV SCH (11:25)
[2019-12-15 15:00] VITALS: BP 132/64
[2019-12-15 15:02] LABS: CALCIUM 7.6 mg/dL (8.5-10.1); CREATININE 0.9 mg/dL (0.6-1.0); GFR 75.6; POTASSIUM 3.7 mmol/L (3.5-5.1)
--- NOTE | 2019-12-15 16:09 | NUR ---
Discharge Note: Patient was discharged home with self care. Patients IV was discontinued without any complications per ELDER. Patients spouse at bedside at the time of discharge education. Patient was given discharge summary/instructions, follow-ups, and educational material. Patient did not have any further questions or concerns. Patient was taken down to the main entrance with all personal belongings accompanied by ELDER Bone, via wheelchair where her was waiting for her to take her home.
--- NOTE | 2019-12-15 18:38 | PDOC3 ---
[facility]-Discharge Summary Date of Admission: Date of Admission: Dec 12, 2019 Date of Discharge: Date of Discharge: Dec 15, 2019 Admission Diagnosis: Admitting Diagnosis: Abdominal pain due to lower GI bleed Intractable nausea vomiting Polycythemia likely due to volume depletion VINH due to vasomotor nephropathy Tobacco use disorder Transaminitis Discharge Diagnosis: Discharge Diagnosis: Abdominal pain due to lower GI bleed Intractable nausea vomiting Polycythemia likely due to volume depletion VINH due to vasomotor nephropathy Tobacco use disorder Transaminitis Consults: Consults: GI Hospital Course: Hospital Course: 69 year old AA female, brought to the emergency room by EMS today with reports of generalized abdominal pain for the last 2 to 3 weeks. Patient reports she is also had nausea, vomiting, and diarrhea for the last 2 weeks. Patient states that her stool is loose and mixed with bright red stool. Denies hematochezia or black stools.. Patient reports a history of diverticulitis and also reports multiple episodes of this in the past before. She denies any fever, cough, shortness of breath, chest pain, palpitations, body aches, fatigue, or headache. She complains of severe lower abdominal pain that she rates a 10 out of 10 on the pain scale, she denies any alleviating factors or radiation of the pain. Patient admitted for further management and GI evaluation. GI determined no interventions at this time and will advance diet as tolerated. Patient's abdominal pain improved and we were able to slowly advance to a soft GI diet. On day of discharge patient was able to tolerate GI diet and we also replaced her potassium as it was low at 3.0. Repeat before discharge was 3.7. Patient's was clinically stable and was abdominal pain-free. The rest of the hospital course was uneventful Disposition: Disposition/Orders: D/C to Home Activity: Activity: Resume previous activity Diet: Diet: Soft Medications: Home Meds Active Scripts Hydrocodone/Apap 5-325 (NORCO 5-325 TABLET) 1 Each Tablet, 1-2 EACH PO PRN Q6HRS PRN for PAIN, #15 as needed for pain Prov:IVY KAM Jr. DO 12/18/18 Ciprofloxacin Hcl (CIPRO) 250 Mg Tablet, 250 MG PO BID for 7 Days, TAB Prov:GERALDINE OMALLEY I DO 05/17/18 Reported Medications Ondansetron Hcl (ONDANSETRON HCL) 4 Mg Tablet, 1 TAB PO PRN Q6HRS for nausea/vomiting, #10 TAB 1 Refill 12/11/19 Suvorexant (Belsomra) 20 Mg Tablet, 20 MG PO HS, TAB 11/04/17 Venlafaxine Hcl (EFFEXOR XR) 37.5 Mg Cap.er.24h, 37.5 MG PO BID, CAP.SR 11/04/17 Esomeprazole Magnesium (NEXIUM CAPSULE) 40 Mg Capsule.dr, 40 MG PO DAILYAC for gastric upset, #30 CAP 0 Refills LAST DOSE GIVEN: DATE:01-22-15 TIME:8:30 a.m. NEXT DOSE DUE: DATE:01-23-15 TIME:8:30 a.m. 01/09/15 Rosuvastatin Calcium (CRESTOR) 10 Mg Tablet, 20 MG PO DAILY for high cholesterol LAST DOSE GIVEN: DATE:01-21-15 TIME:9:00 p.m. NEXT DOSE DUE: DATE:01-22-15 TIME:9:00 p.m. 04/30/13 Scheduled Ciprofloxacin Hcl (Cipro), 250 MG PO BID Esomeprazole Magnesium (Nexium Capsule), 40 MG PO DAILYAC, (Reported) Ondansetron Hcl (Ondansetron Hcl), 1 TAB PO PRN Q6HRS, (Reported) Rosuvastatin Calcium (Crestor), 20 MG PO DAILY, (Reported) Suvorexant (Belsomra), 20 MG PO HS, (Reported) Venlafaxine Hcl (Effexor Xr), 37.5 MG PO BID, (Reported) Scheduled PRN Hydrocodone/Apap 5-325 (Willis 5-325 Tablet), 1-2 EACH PO PRN Q6HRS PRN for PAIN Total Time: Total Time: Total time spent was 40 minutes in preparing scripts, discharge planning with SWI and RN and preparing this discharge summary Patient seen and examined on day of discharge. No acute abnormal findings. Justicifation of Admission Dx: Justifications for Admission: Justification of Admission Dx: Yes EBONY CAPONE MD Dec 15, 2019 18:38
== END 2019-12-15 16:12 | disposition home or self-care (01) | DRG 377 ==
LOC: ER 16:45 → 5 NORTH 19:22
PROVIDERS: ADMIT Internal Medicine; ATTEND Internal Medicine
DX: K92.2 Gastrointestinal hemorrhage, unspecified (principal); N17.0 Acute kidney failure with tubular necrosis; R74.01 Elevation of levels of liver transaminase levels; E86.9 Volume depletion, unspecified; D75.1 Secondary polycythemia; Z90.49 Acquired absence of other specified parts of digestive tract; Z90.710 Acquired absence of both cervix and uterus; F17.210 Nicotine dependence, cigarettes, uncomplicated
CPT/HCPCS: 36415; 74177; 80048; 80053; 81001; 82274; 83690; 83735; 85025; 85027; 87086; 87493; 87505; 90471; 90686; 96361; 96365; 96375; 99285; J0744; J1170; J2270; J2405; J3010; J3480; J3490; J7030; G0378

== ENCOUNTER 2019-12-23 09:08 | Emergency (ER) | payer OTHER ==
[~2019-12-23] VITALS: Ht 157.5 cm; Wt 81.8 kg
[~2019-12-23 09:08] MED LIST changes: +ONDA-84 PO
[2019-12-23] MEDS ORDERED: diazePAM 5 MG TABLET PO ONE (11:30)
--- NOTE | 2019-12-23 11:39 | RAD ---
CT Head W/O Contrast: History: Reason: new onset headache/neck pain / Spl. Instructions: / History: Comparison: none Axial images were obtained without contrast. The drake and white matter appears normal and symmetrical for the patients age. There is no mass effect, extraaxial fluid collections or hydrocephalus. There is no gross bleed. There is no focal loss of drake-white matter distinction to suggest acute ischemia, i.e. stroke. Impression: No acute findings. End impression CT C-Spine without contrast: Clinical History: Reason: new onset headache/neck pain / Spl. Instructions: / History: Technique: Axial helical images of the cervical spine were obtained without contrast, axial coronal and sagittal reconstruction was performed. Findings: There is no loss of vertebral body stature. There is no prevertebral soft tissue swelling. The vertebral bodies are well aligned. There is straightening of the normal cervical lordosis which can be positional or could be chronic. The C1-C2 relationship is normal. The visualized osseous structures appear normal. Evaluation of the central canal is limited without contrast. There is mild disc ossific ridges and hypertrophy of the facets without significant central or neuroforaminal stenosis. Impression: No acute findings. Clinical correlation suggested. PQRS Compliance Statement: One or more of the following individualized dose reduction techniques were utilized for this examination: 1. Automated exposure control 2. Adjustment of the mA and/or kV according to patient size 3. Use of iterative reconstruction technique Electronically signed by: Lyle Silva III, MD (12/23/2019 11:37 AM) [facility]
[2019-12-23] MEDS ORDERED: IV NORMAL SALINE 1000ML BAG 1,000 ML IV ONE (12:46)
[2019-12-23] MEDS ORDERED: diphenhydrAMINE HCL 25 MG CAPSULE PO ONE (13:00)
[2019-12-23] MEDS ORDERED: DEXAMETHASONE SOD PHOS 4 MG/ML VIAL IVP ONE (13:00)
[2019-12-23] MEDS ORDERED: PROCHLORPERAZINE 10 MG/2 ML VIAL. IV ONE (13:00)
[2019-12-23 13:56] VITALS: BP 180/86
--- NOTE | 2019-12-23 14:05 | ED.ADGEN ---
Past Medical History Past Medical History: Arthritis, Diverticulitis, High Cholesterol, Hypert ension, IBS, Migraines, Other Additional Past Medical Histor: insomnia Past Surgical History: Appendectomy, Cholecystectomy, Hysterectomy, Tonsillectomy Additional Past Surgical Histo: bilat carpel tunnel, rt hip sg, rectal prolapse, hemroridectomy, back sg Smoking Status: Current Every Day Smoker Alcohol Use: Rarely Drug Use: None General Adult EDM: Chief Complaint: HEADACHE HPI: HPI: Patient is a 69 year old female who presents to the Emergency room with R sided head pain that radiates to the back. She states it feels like a cramping/spasm pain. Her PCP told her it was due to arthritis. She has been taking excedrin and naproxen without any relief. Denies any trauma, visual changes, rash, dizziness, fever, numbness, weakness, confusion. She has had something similar several years ago. This pain has been constant since and has not gotten better or worse. Review of Systems: Review of Systems: General: Denies fever, chills, sweats, fatigue Eyes: Denies drainage, blurred vision, eye redness HENT: Denies rhinorrhea, sore throat, earache Respiratory: Denies cough, shortness of breath, wheezing Cardiac: Denies edema, palpitations, chest pain GI: Denies abdominal pain, Nausea, vomiting MSK: Denies back pain, neck pain Skin: Denies rash, jaundice Neuro: Denies dizziness. Reports GRANDE Psychiatric: Denies SI/HI Current Medications: Current Medications Medications (Trade) Dose Ordered Sig/Lorraine Start Time Stop Time Status Last Admin Dose Admin Dexamethasone Sodium Phosphate (Decadron) 10 mg 1X ONCE 12/23/19 13:00 12/23/19 13:01 DC 12/23/19 13:36 10 MG Diazepam (Valium) 5 mg 1X ONCE 12/23/19 11:30 12/23/19 11:31 DC 12/23/19 11:34 5 MG Diphenhydramine HCl (Benadryl) 25 mg 1X ONCE 12/23/19 13:00 12/23/19 13:01 DC 12/23/19 13:35 25 MG Prochlorperazine Edisylate (Compazine) 10 mg 1X ONCE 12/23/19 13:00 12/23/19 13:01 DC 12/23/19 13:35 10 MG Sodium Chloride 1,000 ml @ 0 mls/hr Q0M ONCE 12/23/19 12:46 12/23/19 12:49 DC 12/23/19 13:34 1,000 MLS/HR Allergies: Allergies: Allergies Coded Allergies Type Severity Reaction Last Updated Verified amoxicillin Allergy Intermediate Rash 01/21/15 Yes mirtazapine Allergy Intermediate WILD DREAMS 01/22/15 Yes trazodone Allergy Intermediate HEADACHE 01/22/15 Yes cefdinir Adverse Reaction Intermediate Nausea and Vomiting 01/22/15 Yes Physical Exam: PE: General: Awake, alert, NAD. Well Nourished, well hydrated. Cooperative HEENT: Atraumatic, EOMI, PERRL, airway patent, moist oral mucosa Neck: Supple, trachea midline Respiratory: CTA bilaterally, normal effort, no wheezing/crackles CV: RRR, no murmur, cap refill <2 GI: Soft, nondistended, nontender, no masses MSK: No obvious deformities Skin: Warm, dry, intact Neuro: A&O x3, speech NL, 5/5 strength in BUE/BLE distally and proximally, CN 2- 12 intact, cerebellar testing normal Psych: Normal affect, normal mood, not suicidal or homicidal Current Patient Data: Vital Signs: Vital Signs Date Time Temp Pulse Resp B/P (MAP) Pulse Ox O2 Delivery O2 Flow Rate FiO2 12/23/19 13:56 70 96 12/23/19 09:44 98.7 20 132/92 (105) Room Air 98.7 EKG: EKG: [] Heart Score: Risk Factors: Risk Factors: DM, Current or recent (<one month) smoker, HTN, HLP, family history of CAD, obesity. Risk Scores: Score 0 - 3: 2.5% MACE over next 6 weeks - Discharge Home Score 4 - 6: 20.3% MACE over next 6 weeks - Admit for Clinical Observation Score 7 - 10: 72.7% MACE over next 6 weeks - Early Invasive Strategies Radiology/Procedures: Radiology/Procedures: [] Course & Med Decision Making: Course & Med Decision Making Pertinent Labs and Imaging studies reviewed. (See chart for details) Patient is a 69-year-old female who presents to the emergency room complaining of headache and neck pain. This is atypical for her. She does not have any neurologic deficits. She does not have any fever. She is never been an IV drug abuser. CT head and neck were done and did not show any kind of mass or infection. It is highly unlikely that she is encephalitis or meningitis given her lack of fever and altered mental status. She was treated initially with Valium as she described it as a spasm feeling. This did not help. She was then given migraine cocktail with resolution of symptoms. I did discuss with the patient that if she develops a rash she should return as sometimes you can get pains like this prior to getting shingles. Patient's test results and vitals while in the ED were fully reviewed and discussed with the patient. Patient is stable and at this time does not need admission to the hospital. We have discussed strict return precautions and the importance of following up with their Primary Care Physician. Patient stated understanding and was given an opportunity to ask any questions. Patient is in agreement with plan. Tara Disclaimer: Tara Disclaimer: This electronic medical record was generated, in whole or in part, using a voice recognition dictation system. Departure Departure Impression: Primary Impression: Migraine Disposition: 01 DC HOME SELF CARE/HOMELESS Condition: STABLE Referrals: ESVIN FELICIANO MD (PCP) Patient Instructions: Migraine Headache JUDSON RECINOS MD Dec 23, 2019 14:05
== END 2019-12-23 14:39 | disposition home or self-care (01) ==
LOC: ER 09:08
DX: G43.909 Migraine, unspecified, not intractable, without status migrainosus (principal); R25.2 Cramp and spasm; M19.90 Unspecified osteoarthritis, unspecified site; E78.00 Pure hypercholesterolemia, unspecified; I10 Essential (primary) hypertension; F17.200 Nicotine dependence, unspecified, uncomplicated; Z90.89 Acquired absence of other organs; Z90.49 Acquired absence of other specified parts of digestive tract; Z90.710 Acquired absence of both cervix and uterus; Z98.890 Other specified postprocedural states; Z88.1 Allergy status to other antibiotic agents; Z88.8 Allergy status to other drugs, medicaments and biological substances; Z88.6 Allergy status to analgesic agent
CPT/HCPCS: 70450; 72125; 96361; 96374; 96375; 99285; J0780; J1100; J7030; Q0163

== ENCOUNTER 2021-04-17 21:39 | Emergency (ER) | payer OTHER ==
[~2021-04-17] VITALS: Ht 157.5 cm; Wt 89.6 kg
[~2021-04-17 21:39] MED LIST changes: +CYCL10TA19 PO; -CYCL10TA2 PO; +MAGN400T48 PO; -MAGN400T5 PO
--- NOTE | 2021-04-17 21:45 | PHYS DOC ---
Past Medical History Past Medical History: Arthritis, Diverticulitis, High Cholesterol, Hypert ension, IBS, Migraines, Other Additional Past Medical Histor: insomnia Past Surgical History: Appendectomy, Cholecystectomy, Hysterectomy, Tonsillectomy Additional Past Surgical Histo: bilat carpel tunnel, rt hip sg, rectal prolapse, hemroridectomy, back sg Smoking Status: Current Every Day Smoker Alcohol Use: Rarely Drug Use: None General Adult EDM: Chief Complaint: NAUSEA/VOMITING/DIARRHEA HPI: HPI: Patient is a 71 year old female here with report of generalized abdominal pain, which began yesterday. She reports multiple episodes of nausea, vomiting and diarrhea. She reports that she feels like she cannot fully evacuate her bowels. She denies hematemesis, melena or hematochezia. She denies fevers or chills. She denies urinary symptoms. She has had decreased urine output. She denies chest pain, cough, dyspnea. She has had a previous hysterectomy, cholecystectomy and appendectomy. She indicates that she had surgery at [facility] several years ago for what sounds like adhesion lysis. She denies any known history of bowel obstruction or ileus. She also reports that this feels similar to when she had a previous bout of colitis. Asked her specifically about any diagnosis of inflammatory bowel disease, such as Crohn's or ulcerative colitis, and she reports that she thinks that she might have ulcerative colitis, though she does not routinely see a GI doctor and she is not on any medications for this. No recent travel, no recent hospitalizations, no recent antibiotic use. She has been fully vaccinated against Covid, including booster. Review of Systems: Review of Systems: Constitutional: Denies fever or chills. [] HENT: Denies nasal congestion or sore throat. [] Respiratory: Denies cough or shortness of breath. [] Cardiovascular: Denies chest pain or edema. [] GI: Generalized abdominal pain, nausea, vomiting, diarrhea. Denies emesis, melena or hematochezia : Denies dysuria, urgency, frequency or gross hematuria. Decreased urine output Musculoskeletal: Denies back pain or joint pain. [] Integument: Denies rash. [] Neurologic: Denies headache, focal weakness or sensory changes. [] Psychiatric: Denies depression or anxiety. [] Heart Score: C/O Chest Pain: No Risk Factors: Risk Factors: DM, Current or recent (<one month) smoker, HTN, HLP, family history of CAD, obesity. Risk Scores: Score 0 - 3: 2.5% MACE over next 6 weeks - Discharge Home Score 4 - 6: 20.3% MACE over next 6 weeks - Admit for Clinical Observation Score 7 - 10: 72.7% MACE over next 6 weeks - Early Invasive Strategies Allergies: Allergies: Allergies Coded Allergies Type Severity Reaction Last Updated Verified amoxicillin Allergy Intermediate Rash 01/21/15 Yes mirtazapine Allergy Intermediate WILD DREAMS 01/22/15 Yes trazodone Allergy Intermediate HEADACHE 01/22/15 Yes cefdinir Adverse Reaction Intermediate Nausea and Vomiting 01/22/15 Yes Physical Exam: PE: Constitutional: Well developed, well nourished, no acute distress, non-toxic appearance. [] HENT: Normocephalic, atraumatic, mucous membranes are moist Eyes: Conjunctiva normal, no discharge. Sclera are anicteric Neck: Normal range of motion, no tenderness, supple, no stridor. [] Cardiovascular:Heart rate regular rhythm, +2 radial and +2 posterior tibial pulses bilaterally. Lungs & Thorax: Bilateral breath sounds clear to auscultation [] Abdomen: Abdomen is obese, soft, nondistended, hypoactive bowel sounds, epigastric and periumbilical tenderness, mild voluntary guarding, inconsistent guarding, no rebound tenderness, no focal right or left lower quadrant tenderness, no palpable pulsatile mass, no abdominal or flank ecchymoses noted. Skin: Warm, dry. Bilateral lower right and left pannus skin maceration, demarcated areas of light pink erythema, no tenderness. Appears consistent with intertrigo. Back: No tenderness, no CVA tenderness. [] Extremities: No tenderness, no cyanosis, no clubbing, ROM intact, no edema. No calf tenderness. Neurologic: Alert and oriented X 3, normal motor function, normal sensory function, no focal deficits noted. [] Psychologic: Affect normal, judgement normal, mood normal. [] EKG: EKG: [] Radiology/Procedures: Radiology/Procedures: IMAGING REPORT Signed PATIENT: KRISTINA BAZZI MACCOUNT: [id number] : 1950 LOCATION: ER AGE: 71 SEX: F EXAM STATUS: PRE ER ORD. PHYSICIAN: MALI BLACKMON DO REASON: abd pain, n/v/diarrhea, omni 300 75 ml iv PROCEDURE: CT ABD PELV W/ IV CONTRST ONLY CT scan of the abdomen and pelvis with contrast 04/17/2021 CLINICAL HISTORY: Abdominal pain. Nausea vomiting and diarrhea. TECHNIQUE: After the intravenous administration of 75 cc of Omnipaque 300 only, contiguous, 5 mm axial sections were obtained through the abdomen and pelvis. One or more of the following individualized dose reduction techniques were utilized for this study: 1. Automated exposure control. 2. Adjustment of the mA and/or kV according to patient size. 3. Use of iterative reconstruction technique. FINDINGS: Comparison study is dated 12/11/2019. Images through the lung bases demonstrate mild cardiomegaly. Minimal dependent subsegmental atelectasis is seen bilaterally. The liver parenchyma has a decreased attenuation consistent with fatty infiltration. The spleen, pancreas, and adrenal glands are within normal limits. Rounded low-attenuation lesions are seen involving both kidneys. These measure 3 mm to 1 cm in size. They likely represent cysts. No further imaging evaluation is recommended. Atherosclerotic calcification of the abdominal aorta is seen. The abdominal aorta tapers normally. Surgical clips are seen within the gallbladder fossa consistent with a cholecystectomy. No free fluid or free air is seen within the abdomen. There is no evidence of bowel obstruction. Images through the pelvis demonstrate the urinary bladder distended with urine. Diverticula are seen involving the sigmoid colon. Wall thickening of the majority of the sigmoid colon is seen. Faint increased density is seen within the adjacent fat. These findings likely reflect a diverticulitis. No abnormal fluid collection is seen to suggest evidence of an abscess. Calcifications are seen within the pelvis consistent with phleboliths. No free fluid is seen. Very mild S-shaped curvature of the thoracolumbar spine is seen. Degenerative changes are seen involving lower thoracic and throughout the lumbar spine along with both hips. Patient is post laminectomy and posterolateral fusion using pedicle screws and stabilizing rods extending from L4 to S1. IMPRESSION: Findings are seen consistent with sigmoid diverticulitis. No abscess is noted. Electronically signed by: Marcin Cisneros MD (04/17/2021 11:32 PM) [id number] DICTATED and SIGNED BY: MARCIN CISNEROS MD DATE: 04/17/21 [id number] 0 Course & Med Decision Making: Course & Med Decision Making Pertinent Labs and Imaging studies reviewed. (See chart for details) The patient is given a liter of IV fluids, she is given IV Zofran for nausea and IV morphine for pain. She is resting comfortably, reports improvement in symptoms. She has a benign, nonsurgical abdominal exam. She is able to tolerate oral fluids without difficulty. I have discussed all of the findings, differential diagnosis and plan of care with her. She requests outpatient treatment and discharge home. She is able to procure a ride home. I discussed strict return precautions, home care instructions. I told her to call her primary care doctor on Tuesday to arrange for close follow-up. She is comfortable with plan of care, verbalized understanding, and she is discharged in stable condition Tara Disclaimer: Tara Disclaimer: This electronic medical record was generated, in whole or in part, using a voice recognition dictation system. Departure Departure Impression: Primary Impression: Acute diverticulitis Additional Impression: Nausea, vomiting and diarrhea Disposition: 01 HOME / SELF CARE / HOMELESS Condition: STABLE Referrals: ESVIN FELICIANO MD (PCP) Patient Instructions: Diverticulitis Additional Instructions: Take the full course of antibiotics. Use the pain medicine and nausea medicine as directed. Return to the ER immediately for more severe pain, uncontrolled vomiting, dehydration, temperature 100.4 or higher or for any other concerns. Please contact your primary care doctor arrange for close follow-up, on Tuesday. Scripts Metronidazole (METRONIDAZOLE) 500 Mg Tablet 1 TAB PO TID for 10 Days, #30 TAB 0 Refills Prov: MALI BLACKMON DO 04/18/21 Ciprofloxacin Hcl (CIPRO) 500 Mg Tablet 1 TAB PO BID for 10 Days, #20 TAB 0 Refills Prov: MALI BLAKCMON DO 04/18/21 Ondansetron Hcl (ONDANSETRON HCL) 4 Mg Tablet 1 TAB PO PRN Q6HRS for vomiting, #20 TAB 1 Refill Prov: MALI BLACKMON DO 04/18/21 Hydrocodone Bit/Acetaminophen (HYDROCODONE-APAP 5-325 ) 1 Tab Tablet 1 TAB PO PRN Q6HRS PRN for PAIN, #20 TAB 0 Refills Prov: MALI BLACKMON DO 04/18/21 MALI BLACKMON DO Apr 17, 2021 21:44
[2021-04-17 22:08] LABS: BASO # 0.1 x10^3/uL (0.0-0.2); BASO % 0 % (0-3); EOS # 0.1 x10^3/uL (0.0-0.7); EOS % 1 % (0-3); HEMOGLOBIN 15.5 g/dL (12.0-15.5); LYMPH # 1.5 x10^3/uL (1.0-4.8); LYMPH % 10 % (24-48); MEAN CORPUSCULAR HEMOGLOBIN 30 pg (25-35); MEAN CORPUSCULAR HGB CONC 32 g/dL (31-37); MEAN CORPUSCULAR VOLUME 92 fL (79-100); MONO # 1.1 x10^3/uL (0.0-1.1); MONO % 7 % (0-9); NEUT # 12.3 x10^3/uL (1.8-7.7); NEUT % 82 % (31-73); PLATELET COUNT 296 x10^3/uL (140-400); RED BLOOD COUNT 5.21 x10^6/uL (3.50-5.40); RED CELL DISTRIBUTION WIDTH 14.8 % (11.5-14.5)
[2021-04-17 22:14] LABS: CALCIUM 8.8 mg/dL (8.5-10.1); GFR 66.5; POTASSIUM 4.1 mmol/L (3.5-5.1)
[2021-04-17 22:17] LABS: BILIRUBIN,URINE MODERATE (NEG); NITRITE,URINE POSITIVE (NEG); PROTEIN,URINE NEGATIVE (NEG-TRACE)
[2021-04-17 22:19] LABS: ALBUMIN 3.5 g/dL (3.4-5.0); ALBUMIN/GLOBULIN RATIO 0.7 (1.0-1.7); TOTAL BILIRUBIN 0.9 mg/dL (0.2-1.0); TOTAL PROTEIN 8.7 g/dL (6.4-8.2)
[2021-04-17 22:19] LABS: CLARITY,URINE HAZY
[2021-04-17 22:20] LABS: BACTERIA,URINE MANY /HPF (0-FEW); COLOR,URINE AMBER; RBC,URINE OCC /HPF (0-2)
[2021-04-17] MEDS ORDERED: MORPHINE SULFATE 4 MG/ML INJ. IVP ONE (22:30)
[2021-04-17] MEDS ORDERED: IV NORMAL SALINE 1000ML BAG 1,000 ML IV ONE (22:30)
[2021-04-17] MEDS ORDERED: CONTRAST GIVEN. MC PRN (22:30)
[2021-04-17] MEDS ORDERED: ONDANSETRON PF 4 MG/2 ML VIAL. IVP ONE (22:30)
[2021-04-17] MEDS ORDERED: IOHEXOL 300 MG/ML 100ML VIAL. IV ONE (23:00)
--- NOTE | 2021-04-17 23:34 | RAD ---
CT scan of the abdomen and pelvis with contrast 04/17/2021 CLINICAL HISTORY: Abdominal pain. Nausea vomiting and diarrhea. TECHNIQUE: After the intravenous administration of 75 cc of Omnipaque 300 only, contiguous, 5 mm axia l sections were obtained through the abdomen and pelvis. One or more of the following individualized dose reduction techniques were utilized for this study: 1. Automated exposure control. 2. Adjustment of the mA and/or kV according to patient size. 3. Use of iterative reconstruction technique. FINDINGS: Comparison study is dated 12/11/2019. Images through the lung bases demonstrate mild cardiomegaly. Minimal dependent subsegmental atelectas is is seen bilaterally. The liver parenchyma has a decreased attenuation consistent with fatty infiltration. The spleen, panc reas, and adrenal glands are within normal limits. Rounded low-attenuation lesions are seen involving both kidneys. These measure 3 mm to 1 cm in size. They likely represent cysts. No further imaging ev aluation is recommended. Atherosclerotic calcification of the abdominal aorta is seen. The abdominal aorta tapers normally. Angulo rgical clips are seen within the gallbladder fossa consistent with a cholecystectomy. No free fluid o r free air is seen within the abdomen. There is no evidence of bowel obstruction. Images through the pelvis demonstrate the urinary bladder distended with urine. Diverticula are seen involving the sigmoid colon. Wall thickening of the majority of the sigmoid colon is seen. Faint incr eased density is seen within the adjacent fat. These findings likely reflect a diverticulitis. No abn ormal fluid collection is seen to suggest evidence of an abscess. Calcifications are seen within the pelvis consistent with phleboliths. No free fluid is seen. Very mild S-shaped curvature of the thoracolumbar spine is seen. Degenerative changes are seen involv ing lower thoracic and throughout the lumbar spine along with both hips. Patient is post laminectomy and posterolateral fusion using pedicle screws and stabilizing rods extending from L4 to S1. IMPRESSION: Findings are seen consistent with sigmoid diverticulitis. No abscess is noted. Electronically signed by: Marcin Cisneros MD (04/17/2021 11:32 PM) [id number]
[2021-04-18 00:16] VITALS: BP 149/83
[2021-04-18] MEDS ORDERED: ONDA-84 PO (00:22)
[2021-04-18] MEDS ORDERED: METR-34 PO (00:22)
[2021-04-18] MEDS ORDERED: CIPR500T94 PO (00:22)
[2021-04-18] MEDS ORDERED: HYDR-2761 PO (00:22)
== END 2021-04-18 00:40 | disposition home or self-care (01) ==
LOC: ER 21:39
DX: K57.92 Diverticulitis of intestine, part unspecified, without perforation or abscess without bleeding (principal); R11.2 Nausea with vomiting, unspecified; R19.7 Diarrhea, unspecified; E78.00 Pure hypercholesterolemia, unspecified; I10 Essential (primary) hypertension; K58.9 Irritable bowel syndrome, unspecified; G43.909 Migraine, unspecified, not intractable, without status migrainosus; F17.200 Nicotine dependence, unspecified, uncomplicated; Z90.89 Acquired absence of other organs; Z90.49 Acquired absence of other specified parts of digestive tract; Z90.710 Acquired absence of both cervix and uterus; Z88.1 Allergy status to other antibiotic agents; Z88.8 Allergy status to other drugs, medicaments and biological substances
CPT/HCPCS: 36415; 74177; 80053; 81001; 83690; 85025; 87086; 96361; 96374; 96375; 99285; J2270; J2405; J7030; Q9967